=== PATIENT | female | born 1980 | race Caucasian/White ===

== ENCOUNTER 2016-12-21 16:52 | Inpatient (IN) ==
[2016-12-21 18:35] LABS: URINE CULTURE NEEDED? NO; URINE SOURCE CATH
[2016-12-21 18:39] LABS: BILIRUBIN URINE SMALL (NEGATIVE); BLOOD URINE NEGATIVE (NEGATIVE); COLOR YELLOW; GLUCOSE URINE NEGATIVE (NEGATIVE); LEUKOCYTES URINE NEGATIVE (NEGATIVE); NITRITE URINE NEGATIVE (NEGATIVE); PH URINE 5.5; PROTEIN URINE 50 mg/dL (NEGATIVE); SP GRAVITY URINE 1.029; TURBIDITY URINE HAZY (CLEAR); UR EPITHELIAL CELLS <10 /HPF (<10); URINE BACTERIA NEGATIVE /HPF; URINE MICRO REVIEW NEEDED? YES; URINE RBC <10 /HPF (<10); URINE WBC <10 /HPF (<10); UROBILINOGEN URINE 3 mg/dL (NORMAL)
--- NOTE | 2016-12-21 18:42 | PROVIDER DOCUMENTATION ---
HPI-Syncope/Dizziness - General Chief Complaint: Syncope Stated Complaint: syncope/hypotension Time Seen by Provider: 12/21/16 17:56 Source: patient, family Allergies/Adverse Reactions: Patient Allergies Allergy/AdvReac Type Severity Reaction Status Date / Time iodine Allergy RASH Verified 12/21/16 17:53 Home Medications: Home Medication List Medication Instructions Recorded Confirmed Last Taken Type Diazepam 10 mg PO TID 12/21/16 12/21/16 12/21/16 08:00 History Diclofenac Sodium 50 mg PO TID 12/21/16 12/21/16 12/21/16 08:00 History Gabapentin 600 mg PO TID 12/21/16 12/21/16 12/21/16 08:00 History Hydrocodone/Acetaminophen [[place] 1 tab PO PRN PRN 12/21/16 12/21/16 Unknown History 10-325 Tablet] Meloxicam 15 mg PO DAILY 12/21/16 12/21/16 12/21/16 08:00 History Metformin [Glucophage] 500 mg PO DAILY 12/21/16 12/21/16 12/21/16 08:00 History Mometasone/Formoterol [Dulera 200 1 dose PO PRN PRN 12/21/16 12/21/16 Unknown History Mcg/5 Mcg Inhaler] Morphine 15 mg PO PRN PRN 12/21/16 12/21/16 Unknown History Quetiapine Fumarate [Seroquel] 100 mg PO DAILY 12/21/16 12/21/16 12/21/16 08:00 History Quetiapine Fumarate [Seroquel] 200 mg PO DAILY 12/21/16 12/21/16 12/21/16 12:00 History Quetiapine Fumarate [Seroquel] 800 mg PO HS 12/21/16 12/21/16 12/20/16 20:00 History Spironolactone 50 mg PO DAILY 12/21/16 12/21/16 12/21/16 08:00 History Tizanidine [Zanaflex] 4 mg PO TID PRN PRN 12/21/16 12/21/16 Unknown History Trazodone [Desyrel] 50 mg PO HS 12/21/16 12/21/16 Unknown History - History of Present Illness-Syncope/Dizzy Nature of Presenting Problem: 36 y/o WF presents to the ED with c/o syncope x 1 hour 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 Pt states that she remembers walking outside to feed the dog, and came back in- the next memory is her son shaking her to wake her up off of the floor. States disoriented for short amount of time. Denies any drug, etOH use. States chronic pain due to neuropathy in bilat LE. Also states intermittent abd. cramping with constipation x 5 days. Pt was in HH for 3 days and d/c on Tuesday due to diabetes and constipation. States has no hx of HOTN; has been on medications for HTN x 4 months. Denies any vision changes, vomiting, BEGUM, neck pain. Father states that pt has a long hx of chronic drug and etOH use, but has been in their care for one week; had unknown Rx filled today. Pt is seen at a chronic pain clinic for unknown cause. Recently Seen Here or By Another Healthcare Provider: No Review of Systems - Adult - REVIEW OF SYSTEMS - ADULT Constitutional: reports: no symptoms reported. denies: chills, fever Eyes: reports: no symptoms reported. denies: blurred vision, double vision Ears, Nose, Mouth & Throat: reports: no symptoms reported. denies: ear pain, nose pain Cardiovascular: reports: no symptoms reported. denies: chest pain, palpitations Respiratory: reports: no symptoms reported. denies: cough, shortness of breath Gastrointestinal: reports: see HPI, abdominal pain, constipation. denies: nausea, vomiting Genitourinary: reports: no symptoms reported. denies: dysuria, frequency Musculoskeletal: reports: see HPI, muscle weakness, other. denies: joint pain, joint swelling Integumentary: reports: no symptoms reported. denies: nail changes, rash Neurological: reports: see HPI, syncope. denies: headache/migraines, numbness, paresthesia Psychiatric: reports: emotional problems. denies: suicidal thoughts Endocrine: reports: no symptoms reported. denies: cold intolerance, heat intolerance Hematologic/Lymphatic: reports: no symptoms reported. denies: easy bruising, prolonged bleeding Allergic/Immunologic: reports: no symptoms reported All Other Systems: Reviewed and Negative Past History - Adult - PAST MEDICAL HISTORY-ADULT Review of Records: reports: Nursing Assessment Review, Medications Reviewed - SOCIAL HISTORY Smoking: cigarettes, less than 1 pack/day Provider spent 3-5 mins advising pt. on dangers of tobacco.: Discussed manners to quit use, and f/u contacts for add'l counseling. Alcohol Use Frequency: sober (former use) Living Situation: family Physical Exam-General - PHYSICAL EXAM-ADULT Initial Vital Signs Reviewed: Yes - CONSTITUTIONAL General Appearance: alert, mild distress - EYES Eyes: PERRL/EOMI, pink conjunctivae - HEAD, EARS, NOSE, MOUTH & THROAT HENMT: normocephalic/atraumatic, moist mucous membranes - NECK Neck: supple, normal inspection. negative: C-spine tenderness - RESPIRATORY Respiratory: no respiratory distress, crackles, wheezing. negative: accessory muscle use, rales, rhonchi, stridor - CARDIOVASCULAR Cardiovascular: regular rate, rhythm. negative: bradycardia, tachycardia - GASTROINTESTINAL (ABDOMEN) Abdominal Exam: normal bowel sounds, soft, tenderness (mild-generalized). negative: distended, guarding, rigid, rebound, McBurney's point tenderness, Robbins's sign - MUSCULOSKELETAL Back Exam: no CVA tenderness Extremity: normal gait, normal inspection, normal capillary refill, tenderness ( bilat LE pain from superior knees to feet). 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 negative: aphasia, EOM palsy, facial droop, motor weakness, sensory deficit - PSYCHIATRIC Psych/Mental Status: normal mood/affect, normal thought content, normal thought process Progress - PLAN OF CARE/RESULTS Progress/Plan/Lab Results: Bedside Urine ED: Urine Bedside Start: 12/21/16 17:58 Freq: ORDERED Status: Complete Activity Type Activity Date Activity User E-Sign Co-Sign Detail Recorded Client Recorded Date Recorded By Document 12/21/16 18:24 [id number] 12/21/16 18:25 [id number] Edit Status 12/21/16 23:49 [id number] Active=>Complete [id number] 12/21/16 23:49 [id number] 12/21/16 18:24 Point of Care [Bedside Point of Care] -Lot # [id number] - Results Negative -Control Line Visible? Yes 12/21/16 22:14 - Final Blood Blood Culture - Final Coag Negative Staphylococcus Orders Category Date Time Status Admit - [facility] Routine [id number] 12/21/16 23:49 Ordered Cardiac Monitoring DIRECTED Care 12/21/16 17:57 Completed ED: Urine Bedside ORDERED Care 12/21/16 17:58 Completed Finger Stick Blood Sugar (ED) DIRECTED Care 12/21/16 17:57 Completed Oxygen Therapy- ED Nursing DIRECTED Care 12/21/16 17:57 Completed Saline Loc NOW Care 12/21/16 17:57 Completed Diabetic Diet Diet 12/21/16 22:22 Active ABDOMEN FLAT/UPRIGHT [RAD] Stat Exams 12/21/16 18:35 Completed CHEST-2 VIEWS [RAD] Stat Exams 12/21/16 18:35 Completed HEAD/C-SPINE W/O CONTRAST [CT] Stat Exams 12/21/16 18:36 Completed ALCOHOL BLOOD Stat Lab 12/21/16 18:43 Completed BLOOD CULTURE [BLDCUL] Stat Lab 12/21/16 22:14 Results CBC WITH ELECTRONIC DIFF [HEME] Stat Lab 12/21/16 18:43 Completed CK PROFILE [SP CHEM] Stat Lab 12/21/16 18:43 Completed COMPREHENSIVE METABOLIC PANEL [CHEM] Stat Lab 12/21/16 18:43 Completed GRAM STAIN [BLDCUL] Stat Lab 12/21/16 22:14 Completed LACTATE, PLASMA [CHEM] Stat Lab 12/21/16 22:21 Completed PROTIME WITH INR [COAG] Stat Lab 12/21/16 18:43 Completed PTT [COAG] Stat Lab 12/21/16 18:43 Completed URINALYSIS W/POSS RFLX CULT-1 [URINALYSIS] Stat Lab 12/21/16 18:23 Completed URINE DRUG SCREEN Stat Lab 12/21/16 18:23 Completed URINE MANUAL MICROSCOPIC [URINALYSIS] Stat Lab 12/21/16 18:23 Completed 0.9% Sodium Chloride Inj [Ns] 1,000 ml Med 12/21/16 18:45 Discontinued IV 999 mls/hr Azithromycin [Zithromax] Med 12/21/16 19:51 Discontinued 500 mg PO NOW ONE CefTRIAXONE 1 GM/NS [Rocephin 1 gm/Ns] Med 12/21/16 19:51 Discontinued 1 gm in 50 ml IV NOW Hydrocodone/APAP 10 mg/325 mg [[place]-10] Med 12/21/16 22:08 Discontinued 1 each PO Q6H PRN PRN Ketorolac [Toradol] Med 12/21/16 18:45 Discontinued 30 mg IV NOW ONE Methylnaltrexone [Relistor] Med 12/21/16 19:59 Discontinued 8 mg SUBQ NOW ONE Morphine Med 12/21/16 19:59 Discontinued 1 mg IV NOW ONE Piperacil/Tazobact 3.375 gm/Ns [Zosyn 3.375 gm/Ns] Med 12/21/16 22:30 Active 3.375 gm in 50 ml IV Q6H Oxygen Device Routine Oth 12/21/16 23:49 Completed Pulse Oximetry Stat Oth 12/21/16 17:57 Completed EKG [EKG] Stat Ther 12/21/16 17:57 Draft Transfer/Admit Order [TRANSFER] Routine Transfer 12/21/16 22:19 Completed Discussed pt with Dr. Love; he agreed with admission. Discussed admission with pt. Result Diagrams: 12/23/16 10:05 12/23/16 10:05 - XRAY 1 XRAY Study: Chest Impression: See EMR Report (bilateral infiltrates. Follow up films recommended. -per Dr. Galeas) 2 XRAY Study: Abdomen Impression: See EMR Report (mild constipation, mild hepatomegaly -per Dr. Galeas) - CT/MRI 1 CT Study: Cervical Spine, Head Impression: See EMR Report (no hemorrhage, no injury, no fracture -per Dr. Galeas ) - CONSULTS/PCP/HOSPITALIST Notification #1 *Consult/PCP/Hospitalist*: Dr. Alfaro Time Discussed: 20:45 Reason/Comments: bilat PNA, leukocytosis Consult Disposition: Admit Departure - Departure Date of Disposition Decision: 12/21/16 Time of Disposition Decision: 20:37 DIAGNOSIS: History of polydrug abuse Pneumonia Qualifiers: Pneumonia type: due to unspecified organism Laterality: bilateral Lung location : lower lobe of lung Qualified Code(s): J18.9 - Pneumonia, unspecified organism Leukocytosis Qualifiers: Leukocytosis type: unspecified Qualified Code(s): D72.829 - Elevated white blood cell count, unspecified Disposition: ADMITTED INPATIENT 09 Certified Medical Emergency: Emergent Condition: Stable - Critical Care Note This patient required my direct & personal management of CC.: No Attestation - Physician/ GUANACO Attestation Patient care was provided by Advanced Practice Provider:: Yes Advanced Practice Provider:: Janine Castro Advanced Practice Provider documentation review:: The Mid-level provider documentation, treatment plan and medical decision making was reviewed by the physician who agrees with all treatment and medical decision making by the MLP.
[2016-12-21 18:45] LABS: URINE CASTS GRANULAR PRESENT; URINE CRYSTALS NONE SEEN
[2016-12-21] MEDS ORDERED: NS 1,000 ML IV ONE ×2 (18:45→23:49)
[2016-12-21] MEDS ORDERED: TORADOL IV ONE (18:45)
[2016-12-21 18:53] LABS: BASO% 0.9 % (0.0-0.8); EOS# 0.28 X1000 (0.0-0.7); EOS% 1.6 % (0.0-10.0); HEMATOCRIT 33.2 % (37.0-47.0); HEMOGLOBIN 11.3 g/dL (12.0-16.0); IMM GRAN# 0.07 X1000 (0.0-0.04); IMM GRAN% 0.4 % (0.0-0.5); LYMPH# 2.71 X1000 (1.2-3.4); LYMPH% 15.1 % (20.5-51.1); MANUAL DIFF NEEDED? NO; MCH 33.6 PG (27-31); MCV 98.8 FL (81-99); MONO# 0.51 X1000 (0.11-0.59); MONO% 2.8 % (1.7-9.3); MPV 10.8 FL (7.4-10.4); NEUT% 79.2 % (42.2-75.2); PLT 423 X1000 (130-400); RBC 3.36 XMIL (4.2-5.4)
[2016-12-21 18:59] LABS: UR AMPHETAMINES QUAL NONE DETECTED (NONE DETECT); UR BARBITUATES QUAL NONE DETECTED (NONE DETECT); UR BENZODIAZEPIN QUAL PRESUMPTIVE POSITIVE (NONE DETECT); UR CANNABINOIDS QUAL NONE DETECTED (NONE DETECT); UR COCAINE QUAL NONE DETECTED (NONE DETECT); UR METHADONE QUAL NONE DETECTED (NONE DETECT); UR OPIATES QUAL PRESUMPTIVE POSITIVE (NONE DETECT); UR OXYCODONE QUAL NONE DETECTED (NONE DETECT); UR PCP QUAL NONE DETECTED (NONE DETECT)
[2016-12-21 19:01] LABS: INR 1.29; PROTIME 13.8 Seconds (9.2-11.7)
--- NOTE | 2016-12-21 19:06 | Diag Imaging Result Doc PS360 ---
EXAM: CHEST-2 VIEWS HISTORY: wheezing, crackles bilat TECHNIQUE: COMPARISON: None. FINDINGS: The lungs are well expanded. The heart is not enlarged. There are bilateral infiltrates. No pleural effusions. IMPRESSION: Bilateral infiltrates. Follow-up films recommended. Electronically signed by Peter Galeas 12/21/2016 7:04 PM
--- NOTE | 2016-12-21 19:07 | Diag Imaging Result Doc PS360 ---
EXAM: ABDOMEN FLAT/UPRIGHT HISTORY: abd. Pain, hx of constipation/pain med use TECHNIQUE: Three views COMPARISON: None. FINDINGS: No free air beneath the diaphragm. There is stool throughout the colon. The bowel loops are not dilated. The liver is prominent. Mild scoliosis. There are several pelvic calcifications believed to be phleboliths. IMPRESSION: 1.Mild constipation 2.Mild hepatomegaly Electronically signed by Peter Galeas 12/21/2016 7:05 PM
[2016-12-21 19:20] LABS: ALBUMIN 2.3 g/dL (3.5-5.0); CALCIUM 8.3 mg/dL (8.8-10.2); POTASSIUM 3.7 mmol/L (3.5-5.1); TOTAL BILIRUBIN 0.64 mg/dL (0.20-1.00)
--- NOTE | 2016-12-21 19:23 | Diag Imaging Result Doc PS360 ---
EXAM : HEAD/C-SPINE W/O CONTRAST HISTORY: syncope with LOC TECHNIQUE: COMPARISON: None. FINDINGS: Head: No parenchymal hemorrhage. No epidural or subdural hematoma. No subarachnoid hemorrhage. No mass identified on this noncontrasted exam. No hydrocephalus. No sinus opacification. Cervical spine: Mild scoliosis. No precervical soft tissue swelling. No subluxation. No fracture. IMPRESSION: Head: No hemorrhage. No injury. Cervical spine: No fracture. Electronically signed by Peter Galeas 12/21/2016 7:21 PM
[2016-12-21] MEDS ORDERED: ZITHROMAX PO ONE (19:51)
[2016-12-21] MEDS ORDERED: ROCEPHIN 1 GM/NS 1 GM/50 ML IVPB IV ONE (19:51)
[2016-12-21] MEDS ORDERED: MORPHINE IV ONE (19:59)
[2016-12-21] MEDS ORDERED: RELISTOR SUBQ ONE (19:59)
[2016-12-21] MEDS: NORCO-10 PO PRN (22:49)
[2016-12-21] MEDS: ZOSYN 3.375 GM/NS 3.375 GM/50 ML IVPB IV SCH (22:49)
[2016-12-21] MEDS ORDERED: TYLENOL PO PRN (23:49)
[2016-12-21] MEDS ORDERED: DULCOLAX PR ONE (23:54)
[2016-12-22] MEDS: DESYREL PO SCH ×2 (02:13→20:57)
[2016-12-22] MEDS: NEURONTIN PO SCH ×3 (02:13→20:57)
[2016-12-22] MEDS: LOVENOX SUBQ SCH ×2 (02:14→22:55)
[2016-12-22] MEDS: SEROQUEL PO SCH ×2 (03:12→20:57)
[2016-12-22] MEDS: NICODERM PATCH TD PRN (03:43)
[2016-12-22] MEDS: DUONEB (A & A) INH SCH ×7 (03:43→22:59)
[2016-12-22] MEDS: ZOSYN 3.375 GM/NS 3.375 GM/50 ML IVPB IV SCH ×4 (03:46→22:06)
--- NOTE | 2016-12-22 05:04 | HISTORY AND PHYSICAL ---
TIME: 2199 CHIEF COMPLAINT: Weakness, dyspnea on exertion, and a syncopal episode. HISTORY OF PRESENT ILLNESS: Ms. Martin is a 36-year-old, female who presented to the ER tonight by EMS with complaints of a syncopal episode just prior to arrival. The patient was just recently discharged from [facility] on December 17. The patient states she was admitted for approximately 3 days. She reports that she got admitted for neuropathy, though during this admission was diagnosed with diabetes. She states that approximately 2 days after being discharged, she began not feeling well and feeling more weak. This has progressively gotten worse. Also, she reports that at rest, she does not have any shortness of breath, though states that she only walks just a couple of feet and becomes very dyspneic and dizzy. She also reports a productive cough with clear sputum. She denies any fever, body aches , or chills. The patient does report that she has chronic pain and takes pain medication for this. Secondary to this, she also has continued problems with constipation and reports that she has not had a bowel movement in approximately 1 week. She states that is not uncommon for her to go awhile without having a bowel movement. She reports that she has gone as long as up to a month before. She does report, as previously mentioned, some dizziness and lightheadedness, though denies any headache or visual disturbances. She does report that when she had her syncopal episode earlier that she did pass out onto the floor, though it is unknown whether or not she hit her head. The patient does not have any signs of trauma noted, and is alert and oriented to person, place, time, and situation at this time, and is answering all questions appropriately. She denies any other injuries. Denies any chest pain, nausea, vomiting, diarrhea, dysuria, or urinary frequency. The patient does report chronic pain related to her neuropathy. Upon evaluation in the ER, the patient was found to be slightly hypotensive with the lowest blood pressure reading of 92/59. She was also found to be dyspneic and slightly hypoxic. Lung sounds had wheezing and rhonchi noted with decreased lung sounds in bilateral bases. Leukocytosis was present as well. Chest x-ray showed that she had bilateral infiltrates. Abdominal x-ray showed that she had some constipation. The patient was given a dose of Relistor in the ER, though at this time has not had a bowel movement. The patient also is a chronic pain patient. She currently takes quite a few pain medicines. She currently sees Dr. Tom Calvo for pain management control as well as Dr. Ger Thomas, who is her psychiatrist in [place]. The patient denies any other drug use except for her prescribed pain medicines. She also denies any alcohol abuse as well, though currently still does smoke a pack and a half of cigarettes per day. At this time, we will admit the patient for further treatment and evaluation of her bilateral pneumonia, hypotension, and constipation. REVIEW OF SYSTEMS: A 12 point review of systems was conducted with the patient. All were negative except for pertinent positives mentioned above in the HPI. PAST MEDICAL HISTORY: 1. Asthma. 2. Diabetes mellitus. 3. Hypertension. 4. Seizures. 5. Bipolar disorder. 6. Neuropathy. PAST SURGICAL HISTORY: No known past surgical history. SOCIAL HISTORY: The patient denies any alcohol or illicit drug use, though she has been a long time chronic pain patient. She does currently smoke a pack and a half of cigarettes a day, and has so since the age of 13. FAMILY HISTORY: She reports that her mother had a history of HHT (that is hereditary hemorrhagic telangiectasia). She reports that her dad he is healthy and she has no siblings. ALLERGIES: She reports allergies to iodine, stating it caused her to have a rash. HOME MEDICATIONS: 1. Diazepam 10 mg p.o. t.i.d. 2. Diclofenac 50 mg p.o. t.i.d. 3. Gabapentin 600 mg p.o. t.i.d. 4. [place] 10 mg 1 tablet p.o. t.i.d. for pain. 5. Meloxicam 15 mg p.o. daily. 6. Metformin 500 mg p.o. daily. 7. Dulera 200 mcg/5 mcg inhaler 1 puff inhaled daily. 8. Morphine 15 mg extended release b.i.d. 9. Seroquel 1300 mg p.o. at bedtime, though when the patient was questioned about this dosage, she reports that at this time she has only been taking 400 mg daily at night and this has been controlling her symptoms well. 10. Spironolactone 50 mg p.o. daily. 11. Zanaflex 4 mg p.o. t.i.d. p.r.n. 12. Trazodone 50 mg p.o. at bedtime. DIAGNOSTIC DATA/LABORATORY RESULTS: White blood cell count is 17.93, red blood cell count 3.36, hemoglobin 11.3, hematocrit 33.2, platelet count is 423,000. PT 13.8, INR 1.29 , PTT 35. Sodium 137, potassium 3.7, chloride 97, bicarb 26, BUN 9, creatinine 1.2, with a GFR of 51, glucose 143, calcium 8.3. Total bilirubin 0.64, AST 75, ALT 23, alkaline phosphatase is 111. CK 75. Plasma lactate 2.2. Urinalysis was obtained via catheter. It was positive for protein , trace ketones, small bilirubin. It was negative for leukocytes white blood cells, or bacteria. Urine drug screen was positive for opiates and benzodiazepines. Serum alcohol was 0. EKG showed normal sinus rhythm at a rate of 95 with a QTc of 434. Chest 2 view showed bilateral infiltrates. This was per radiology. Abdomen flat and upright showed mild constipation and mild hepatomegaly. This was per radiology. CT of head, C-spine without contrast showed no hemorrhage, no injury, and no cervical spine fractures. This was per radiology as well. PHYSICAL EXAMINATION: VITAL SIGNS: Temperature 97.6 degrees, heart rate 92, respirations 23, blood pressure 111/64. Oxygen saturation is 94% on nasal cannula at 2 L. GENERAL: Mr. Martin is a 36-year-old, female who was resting on the ER stretcher. She was in no acute distress. She was awake, alert, and able to answer questions appropriately. HEENT: Head is atraumatic, normocephalic. Pupils are equal, round, reactive to light, were 3 mm bilaterally and brisk. Subconjunctivae were pink. Oral mucosa is moist. Oropharynx is clear. NECK: Supple. Trachea midline. CARDIOVASCULAR: Patient has normal S1, S2. No murmurs, gallops, or rubs appreciated, with a regular rate and rhythm. PULMONARY: Patient has symmetrical chest expansion bilaterally. Lung sounds in the upper lung ramos had wheezing and rhonchi noted. Patient's lung sounds in bilateral lower ramos were diminished. ABDOMEN: Soft. Nondistended, though the patient does have a slightly protuberant abdomen noted. She complained of some generalized tenderness upon palpation. Bowel sounds were present in all 4 quadrants, were slightly hypoactive. EXTREMITIES: No cyanosis, clubbing, or edema noted. Pulse, motor, and sensory were intact in all extremities. Pedal pulses were 3+ bilaterally. INTEGUMENTARY: The patient's skin is pink, warm, dry, and intact. No lesions or sores noted. NEUROLOGICAL: Patient is alert and oriented x4. Cranial nerves 2-12 are grossly intact. ASSESSMENT AND PLAN: 1. Hospital-acquired pneumonia with bilateral infiltrates. We have placed her on Zosyn and Levaquin for intravenous antibiotic coverage. The patient did have a recent hospital admission as well as does take quite a bit of pain medication and has had a syncopal episode so we will also cover her for aspiration pneumonia. Blood cultures and sputum culture have been ordered. We will continue with aggressive pulmonary toilet, scheduled DuoNeb treatments, oxygen therapy, and we will continue to follow. 2. Leukocytosis. This is likely related to her pneumonia. We will continue with treatment as mentioned per #1 and continue to follow. 3. Hypotension. The patient has received normal saline bolus in the emergency room. Her blood pressure at this time has improved. We will also place an order for a cortisol level given that the patient is a chronic pain patient and this could be related to adrenal insufficiency and/ or possibly pain medication. We will continue to monitor her blood pressure closely. 4. Acute kidney injury. This could be secondary to some mild fluid volume depletion, hypotension, and/or medication-related. We will continue with fluid resuscitation with normal saline at 100 mL per hour. We will adjust her current medication dosages for appropriate renal dosing and avoid any nephrotoxic medications. 5. Diabetes mellitus type 2. Given that the patient's creatinine is slightly elevated, we will hold her metformin and place her on a sliding scale lispro insulin, and continue to follow. 6. Neuropathy. We will continue with the patient's gabapentin, though we have adjusted the dosage. 7. Chronic pain. Given that the patient has been hypotensive we have held and/ or adjusted some of her medications. She will receive [place] 10mg PO Q6H PRN for pain at this time. 8. Bipolar disorder. We will continue with the patient's Seroquel and trazodone. 9. Constipation. The patient is to have a Dulcolax suppository as well as Colace 100 mg twice a day and MiraLAX 17 g by mouth daily. 10. Nicotine dependence. We will continue to certified alcohol counselor the patient on the need for smoking cessation during her admission and upon discharge, though while inpatient, the patient will receive a nicotine patch. 11. The patient will be placed on the medical floor with telemetry. She will have vital signs every 6 hours. We will do strict intake and output. We will do incentive spirometry. She will be on a diabetic diet. We will repeat a CBC and CMP in the morning. For deep venous thrombosis prophylaxis, she will be placed on Lovenox 30 mg subcutaneous every 24 hours. Further orders and recommendations pending hospital course, diagnostic studies, and physician evaluation. Dictated by MALA Antonio for Piper Alfaro MD Seen ,examined and discussed case with NUTRITION THERAPIST cc: Piper Alfaro MD MTDD
[2016-12-22 05:24] LABS: BASO% 1.2 % (0.0-0.8); EOS# 0.39 X1000 (0.0-0.7); EOS% 3.2 % (0.0-10.0); HEMATOCRIT 34.2 % (37.0-47.0); HEMOGLOBIN 11.2 g/dL (12.0-16.0); IMM GRAN# 0.08 X1000 (0.0-0.04); IMM GRAN% 0.7 % (0.0-0.5); LYMPH# 2.57 X1000 (1.2-3.4); MANUAL DIFF NEEDED? YES; MCH 33.3 PG (27-31); MCHC 32.7 g/dL (33-37); MCV 101.8 FL (81-99); MONO# 0.42 X1000 (0.11-0.59); MONO% 3.4 % (1.7-9.3); MPV 10.8 FL (7.4-10.4); NEUT% 70.5 % (42.2-75.2); PLT 466 X1000 (130-400); RBC 3.36 XMIL (4.2-5.4)
[2016-12-22] MEDS: NORCO-10 PO PRN ×3 (05:26→22:58)
--- NOTE | 2016-12-22 05:33 | EKG Report ---
Test Performed on : 12/21/2016 5:45:30 PM Test Reason : AMS Blood Pressure : / mmHG Vent. Rate : 095 BPM Atrial Rate : 095 BPM P-R Int : 138 ms QRS Dur : 076 ms QT Int : 346 ms P-R-T Axes : 040 023 028 degrees QTc Int : 434 ms Normal sinus rhythm. Cannot rule out Anterior infarct , age undetermined Abnormal ECG No previous ECGs available Unconfirmed Result
[2016-12-22 05:35] LABS: ALBUMIN 2.2 g/dL (3.5-5.0); CALCIUM 7.8 mg/dL (8.8-10.2); POTASSIUM 4.1 mmol/L (3.5-5.1); TOTAL BILIRUBIN 0.79 mg/dL (0.20-1.00); TOTAL PROTEIN 4.9 g/dL (6.3-8.3)
[2016-12-22] MEDS: HUMALOG SUBQ SCH ×4 (06:27→20:52)
[2016-12-22 07:26] LABS: EOS 2 % (1-10); LYMPHS 22 % (21-51)
[2016-12-22] MEDS: MIRALAX PO SCH (09:33)
[2016-12-22] MEDS: COLACE PO SCH ×2 (09:33→20:56)
[2016-12-22] MEDS: VALIUM PO SCH ×3 (09:34→23:03)
[2016-12-22] MEDS: MS CONTIN PO SCH ×2 (12:08→20:57)
[2016-12-22] MEDS ORDERED: VANCOMYCIN IV PER PHARMACY MISC SCH (12:15)
--- NOTE | 2016-12-22 12:38 | PROGRESS NOTE ---
DATE: 12/22/2016 SUBJECTIVE: Patient reports she is still feeling short of breath. Denies any fever or chills. She reports hurting all over because her usual pain medications are not being given to her here in the hospital. OBJECTIVE: Vital Signs: Temperature is 98.7 degrees, heart rate 112, respiratory rate 22, blood pressure 159/102, O2 saturation 94% on 3 L nasal cannula. General Examination: This is a morbidly obese, looking older than her age, 36-year-old, female lying in bed, in no acute distress. HEENT: Head is normocephalic and atraumatic. Anicteric sclerae and pale conjunctivae. Mucous membranes dry. Neck: Supple. No JVD noted. No carotid bruits. No lymphadenopathy. No thyromegaly. Cardiovascular Examination: S1 and S2 heard. No murmurs, gallops, or rubs. Regular rate and rhythm. Respiratory Examination: Wheezing in both pulmonary ramos. Patient is not using any accessory muscles or having work of breathing. Abdomen: Soft and protuberant abdomen but nondistended. Nontender to palpation. Bowel sounds present. No organomegaly. Extremities: No clubbing, cyanosis, or edema. Peripheral pulses present in both legs. Neurological Examination: Patient is alert and oriented x3. Moves 4 extremities. Laboratory Data: White cell count 12.26, hemoglobin 11.2, hematocrit 34.2, platelets 466,000. BMP shows creatinine 1.2 and glucose 126. ASSESSMENT AND PLAN: 1. Healthcare-associated pneumonia. Patient is currently on Zosyn and Levaquin but because I have been called with blood cultures that are positive for gram-positive cocci, I decided to change the Levaquin for vancomycin. Clinically, she is showing mild improvement clinically. We will continue with the same management. The patient is getting DuoNeb and oxygen therapy. White cell count is also getting better. 2. Hypotension. That condition is resolved. Patient is on intravenous fluids. Because of chronic pain medication use, cortisol level has been ordered for suspected adrenal insufficiency. The result is normal. 3. Acute kidney injury. The patient is on intravenous fluids but the creatinine is around the same. We will continue with the same management. 4. Diabetes mellitus type 2. The patient is on sliding scale insulin. 5. Diabetic neuropathy. We will continue with gabapentin. 6. Chronic pain. Patient insists on continuing her home medications. Currently, she is on [place] 10 every 6 hours as needed and also morphine 15 mg by mouth twice a day. We are going to start less medication. We will see how she does. 7. Bipolar disorder. Patient is on Seroquel and trazodone. Patient is being followed by the local psychiatrist. 8. Constipation, of course because she is on those pain medications. We will continue with MiraLAX. 9. Nicotine dependence. We will continue with the nicotine patch. cc: Farshad Dexter MD
[2016-12-22] MEDS ORDERED: VANCOMYCIN IV ONE (14:00)
[2016-12-22] MEDS ORDERED: NS IV ONE (14:00)
[2016-12-22] MEDS ORDERED: ZANAFLEX PO PRN (15:46)
--- NOTE | 2016-12-22 16:20 | Diag Imaging Result Doc PS360 ---
EXAM: CHEST-1 VIEW HISTORY: decrease o2 sat TECHNIQUE: Single AP view of chest sitting COMPARISON: 12/21/2016 FINDINGS: Visualization is limited by portable technique and large body habitus. Bilateral infiltrates are suspected and unchanged when compared with yesterday's study. No effusions are appreciated. Heart size is within normal limits. IMPRESSION: Probable unchanged bilateral infiltrates. Electronically signed by Belén Chou 12/22/2016 4:18 PM
[2016-12-22 16:24] LABS: BE -2.1 mmoll (-3.0-3.0); BLOOD TYPE ARTERIAL; METHB 0.6 % (0.0-1.5); O2(CT) 15.1 mL/dL (15.0-23.0); PCO2(98.6) 47 mmHg (35-45); PO2(98.6) 76 mmHg (60-100); SAMPLE BLOOD; SAO2 96.5 % (95.0-100.0); THB 11.4 g/dL (11.5-17.4); pH(98.6) 7.32 (7.35-7.45)
[2016-12-22 16:25] LABS: ALLEN TEST NO; DRAW SITE R BRACHIAL; MODALITY PRB
[2016-12-22 17:53] LABS: URINE CULTURE NEEDED? NO; URINE SOURCE CATH
[2016-12-22 17:59] LABS: BILIRUBIN URINE NEGATIVE (NEGATIVE); BLOOD URINE MODERATE (NEGATIVE); COLOR YELLOW; GLUCOSE URINE NEGATIVE (NEGATIVE); LEUKOCYTES URINE NEGATIVE (NEGATIVE); NITRITE URINE NEGATIVE (NEGATIVE); PH URINE 5.5; PROTEIN URINE 30 mg/dL (NEGATIVE); SP GRAVITY URINE 1.031; TURBIDITY URINE HAZY (CLEAR); UROBILINOGEN URINE NORMAL (NORMAL)
[2016-12-22 18:01] LABS: URINE MICRO REVIEW NEEDED? YES
[2016-12-22 18:05] LABS: UR EPITHELIAL CELLS <10 /HPF (<10); URINE BACTERIA NEGATIVE /HPF; URINE RBC TNTC /HPF (<10); URINE WBC <10 /HPF (<10)
[2016-12-22] MEDS ORDERED: DESYREL PO SCH (21:00)
[2016-12-23] MEDS ORDERED: LEVAQUIN 750 MG in NS 150 ML IV SCH (01:00)
[2016-12-23] MEDS: DUONEB (A & A) INH SCH ×6 (03:45→23:02)
[2016-12-23] MEDS: ZOSYN 3.375 GM/NS 3.375 GM/50 ML IVPB IV SCH ×5 (04:06→22:58)
[2016-12-23] MEDS: HUMALOG SUBQ SCH ×4 (06:00→20:50)
[2016-12-23] MEDS: NORCO-10 PO PRN (06:16)
[2016-12-23] MEDS: COLACE PO SCH ×2 (08:32→22:57)
[2016-12-23] MEDS: MS CONTIN PO SCH ×2 (08:32→20:45)
[2016-12-23] MEDS: NEURONTIN PO SCH ×2 (08:32→22:58)
[2016-12-23] MEDS: VALIUM PO SCH (08:32)
[2016-12-23] MEDS: MIRALAX PO SCH (08:34)
[2016-12-23] MEDS ORDERED: LEVAQUIN PO SCH (09:30)
[2016-12-23 10:29] LABS: BASO% 1.1 % (0.0-0.8); EOS# 0.44 X1000 (0.0-0.7); HEMATOCRIT 35.8 % (37.0-47.0); HEMOGLOBIN 11.5 g/dL (12.0-16.0); IMM GRAN% 0.9 % (0.0-0.5); LYMPH# 1.63 X1000 (1.2-3.4); MANUAL DIFF NEEDED? YES; MCH 33.1 PG (27-31); MCHC 32.1 g/dL (33-37); MCV 103.2 FL (81-99); MONO% 2.8 % (1.7-9.3); MPV 10.6 FL (7.4-10.4); NEUT% 76.2 % (42.2-75.2); RBC 3.47 XMIL (4.2-5.4)
[2016-12-23 10:36] LABS: AGAP 11; BUN 6 mg/dL (8-22); CALCIUM 7.3 mg/dL (8.8-10.2); CHLORIDE 102 mmol/L (98-107); COSMO 276; POTASSIUM 4.1 mmol/L (3.5-5.1); SODIUM 138 mmol/L (136-145); TCO2 25 mmol/L (25-35)
[2016-12-23 10:39] LABS: BANDS 1 % (0-1); EOS 2 % (1-10); LYMPHS 9 % (21-51); MONO 2 % (1-9)
[2016-12-23 10:41] LABS: PLT 417 X1000 (130-400)
--- NOTE | 2016-12-23 10:45 | PROGRESS NOTE ---
DATE: 12/23/2016 SUBJECTIVE: The patient reports she is still feeling short of breath. As per nursing staff yesterday and also per patient, she reports that she was using her pain pills from home and those were confiscated and locked out. But now, she looks to me to be more sleepy and using on non- rebreather mask. VITAL SIGNS: Temperature 97.6 degrees, heart rate 101, respiratory 20, blood pressure 101/51, O2 saturation 100% on 15 L. PHYSICAL EXAMINATION: General Examination: This is a morbidly obese, looking older than her age, 36-year-old female lying in bed, in no acute distress. HEENT: Head is normocephalic, atraumatic. Anicteric sclerae and pale conjunctivae. Mucous membranes dry. Neck supple. No JVD noted. No carotid bruits. No lymphadenopathy. No thyromegaly. Cardiovascular: S1-S2 heard. No murmurs, gallops, or rubs. Regular rate and rhythm. Respiratory: Clear bilaterally to auscultation. No work of breathing or using accessory muscles. Abdomen is soft, nontender to palpation. Bowel sounds present. No organomegaly. Extremities: No clubbing, cyanosis, or edema. Peripheral pulses present in both legs. Neurological: Patient is alert and oriented x3, able to move 4 extremities. Cranial nerves 2-12 grossly normal. Wheezing is still present in both pulmonary ramos but patient is not using any accessory muscles or work of breathing and using now a non-rebreather mask. Abdomen is soft, protuberant but nondistended. Nontender to palpation. Bowel sounds present. No organomegaly. No signs of peritoneal irritation. Extremities: No clubbing, cyanosis, or edema. Peripheral pulses present in both legs. Neurologic exam: Patient is more sleepy today but moves her extremities and, of course, responds to verbal stimuli. LABORATORY DATA: There are no labs from today. ASSESSMENT AND PLAN: 1. Healthcare-associated pneumonia. Patient currently is on Zosyn and vancomycin. The last antibiotic was started yesterday because of report from gram-positive cocci. Today, the final report said Staphylococcus epidermidis which is a contaminant, so Levaquin has been restarted and we will continue with Zosyn. Clinically, she looks more sleepy and having some shortness of breath. I think this is because of the medication that she was abusing here last night, namely [place] and morphine 15 extended release form. The patient has been advised to not take any medications outside and the only medication that she is supposed to take is what is being given here in the hospital. Patient acknowledged understanding. 2. Hypotension, resolved. Patient was on IV fluids and, by now, without any fluid, blood pressure is better. 3. Acute kidney injury. We are going to check a BMP tomorrow. From yesterday, the creatinine was 1.2. 4. Diabetes mellitus, type 2. Patient on sliding scale insulin. 5. Diabetic neuropathy. We will continue with gabapentin. 6. Chronic pain. I already advised the patient that we cannot continue with the same doses of pain medication that she was taking before coming to the hospital because that will worsen respiratory failure. So, at this point, we are going to stop [place] 10 that was being given every 6 hours as needed. We will continue with morphine 15 b.i.d., and we will also stop Zanaflex. We will see how she does tomorrow. 7. Bipolar disorder. Patient is on Seroquel and trazodone, home doses. 8. Constipation. Will continue with MiraLAX. 9. Nicotine dependence. Will continue with nicotine patch. cc: Farshad Dexter MD
--- NOTE | 2016-12-23 10:45 | Diag Imaging Result Doc PS360 ---
EXAM: CT THORAX W/O CONTRAST INDICATION: pna TECHNIQUE: Dose reduction protocol was used. COMPARISON: None. FINDINGS: There is diffuse groundglass opacity throughout both lungs with interlobular septal thickening in a crazy paving pattern. This pattern is nonspecific and can be seen in multiple processes such as adult respiratory distress syndrome, cryptogenic organizing pneumonia, edema, pulmonary hemorrhage, and alveolar proteinosis, etc. There are no pleural fluid collections and there is no pneumothorax. There is mild mediastinal lymphadenopathy, probably reactive. For reference, there is a lymph node in the aorticopulmonary window on image 36 of series 2 measuring up to 1.6 x 1.0 cm axially. Limited views of the upper abdomen reveals extensive diffuse hepatic steatosis. IMPRESSION: 1.Severe diffuse airspace infiltrates and interstitial thickening bilaterally. Please see above discussion. 2.Mild mediastinal lymphadenopathy. 3.Diffuse hepatic steatosis noted incidentally. Electronically signed by Eliecer Solorio 12/23/2016 10:43 AM
[2016-12-23] MEDS ORDERED: VANCOMYCIN 1.65 GM in NS 250 ML IV SCH (14:00)
[2016-12-23] MEDS: NICODERM PATCH TD PRN (15:11)
[2016-12-23] MEDS: ZOFRAN IV PRN (16:48)
[2016-12-23] MEDS: SEROQUEL PO SCH (22:57)
[2016-12-23] MEDS: DESYREL PO SCH (22:58)
[2016-12-23] MEDS: LOVENOX SUBQ SCH (22:58)
[2016-12-24] MEDS: ZANAFLEX PO SCH ×2 (01:38→20:26)
[2016-12-24] MEDS: VALIUM PO SCH ×3 (01:39→20:26)
[2016-12-24 02:25] LABS: ALLEN TEST YES; BE 3.9 mmoll (-3.0-3.0); BLOOD TYPE ARTERIAL; DRAW SITE R RADIAL; METHB 1.2 % (0.0-1.5); O2(CT) 13.5 mL/dL (15.0-23.0); PCO2(98.6) 46 mmHg (35-45); PO2(98.6) 55 mmHg (60-100); SAMPLE BLOOD; SAO2 90.7 % (95.0-100.0); THB 10.9 g/dL (11.5-17.4); pH(98.6) 7.41 (7.35-7.45)
[2016-12-24 02:26] LABS: MODALITY PRB
[2016-12-24] MEDS: DUONEB (A & A) INH SCH ×6 (03:18→23:06)
[2016-12-24] MEDS: ZOSYN 3.375 GM/NS 3.375 GM/50 ML IVPB IV SCH ×4 (03:59→22:32)
[2016-12-24] MEDS ORDERED: MORPHINE IV PRN (05:55)
[2016-12-24 06:02] LABS: BASO% 0.7 % (0.0-0.8); EOS# 0.23 X1000 (0.0-0.7); EOS% 1.4 % (0.0-10.0); HEMATOCRIT 35.8 % (37.0-47.0); HEMOGLOBIN 11.4 g/dL (12.0-16.0); IMM GRAN# 0.16 X1000 (0.0-0.04); LYMPH# 2.22 X1000 (1.2-3.4); LYMPH% 13.2 % (20.5-51.1); MANUAL DIFF NEEDED? YES; MCH 32.9 PG (27-31); MCHC 31.8 g/dL (33-37); MCV 103.5 FL (81-99); MONO# 0.62 X1000 (0.11-0.59); MONO% 3.7 % (1.7-9.3); MPV 10.3 FL (7.4-10.4); PLT 477 X1000 (130-400); RBC 3.46 XMIL (4.2-5.4)
[2016-12-24 06:10] LABS: AGAP 10; BUN 3 mg/dL (8-22); CALCIUM 7.4 mg/dL (8.8-10.2); CHLORIDE 104 mmol/L (98-107); COSMO 281; POTASSIUM 4.5 mmol/L (3.5-5.1); SODIUM 142 mmol/L (136-145); TCO2 28 mmol/L (25-35)
[2016-12-24] MEDS: MORPHINE IV PRN ×5 (06:18→22:30)
[2016-12-24] MEDS: HUMALOG SUBQ SCH ×4 (06:20→20:24)
[2016-12-24 07:08] LABS: BANDS 4 % (0-1); LYMPHS 10 % (21-51); MONO 2 % (1-9)
--- NOTE | 2016-12-24 07:11 | EKG Report ---
Test Performed on : 12/24/2016 05:55:17 AM Test Reason : No Order in [employer] Blood Pressure : / mmHG Vent. Rate : 131 BPM Atrial Rate : 131 BPM P-R Int : 120 ms QRS Dur : 066 ms QT Int : 316 ms P-R-T Axes : 047 041 020 degrees QTc Int : 466 ms Sinus tachycardia. Nonspecific ST and T wave abnormality Abnormal ECG When compared with ECG of 21-DEC-2016 17:45, ST now depressed in Anterior leads Nonspecific T wave abnormality now evident in Anterior leads Confirmed by Jonathan CASTANEDA, Jaspreet Quintana ([id number]) on 12/24/2016 1:03:00 PM
[2016-12-24] MEDS: NEURONTIN PO SCH ×2 (08:32→20:25)
[2016-12-24] MEDS: COLACE PO SCH ×2 (08:32→20:24)
[2016-12-24] MEDS: MIRALAX PO SCH (08:33)
[2016-12-24] MEDS ORDERED: LEVAQUIN 750 MG/D5W 750 MG/150 ML IVPB IV SCH (09:00)
[2016-12-24] MEDS: SODIUM CHLORIDE 0.9% INJ SCH ×2 (09:18→20:25)
[2016-12-24] MEDS: SOLU-MEDROL IV SCH ×2 (09:18→20:24)
[2016-12-24] MEDS: PROTONIX IV SCH ×2 (09:18→20:25)
[2016-12-24] MEDS ORDERED: VANCOMYCIN IV PER PHARMACY MISC SCH (13:00)
--- NOTE | 2016-12-24 13:42 | PROGRESS NOTE ---
DATE: 12/24/2016 SUBJECTIVE: Patient reports she is still feeling short of breath and, of course , every single day hurting all over. As per nursing staff, today, they already found in her purse tablets of Valium. We are not sure how many tablets that she had or if she took some of them. OBJECTIVE: Vital Signs: Temperature 98.8 degrees, heart rate 115, respiratory rate 22, blood pressure 115/66. O2 saturation 97% on non-rebreather mask at 15 L/minute. General: This is a 36- year-old, obese female, lying in bed in no acute distress. HEENT: Head is normocephalic and atraumatic. Anicteric sclerae and pale conjunctivae. Mucous membranes dry. Neck supple. No JVD noted. No carotid bruits. No lymphadenopathy. No thyromegaly. Cardiovascular: S1, S2 heard. No murmurs, gallops, or rubs. Regular rate and rhythm. Respiratory: Clear bilaterally to auscultation. No work of breathing or using accessory muscles. I hear crackles in both bases. Abdomen is soft, nontender to palpation. Bowel sounds present. No organomegaly. Extremities: No clubbing, cyanosis, or edema. Peripheral pulses present in both legs. Neurologic: Patient alert and oriented x3. Moves 4 extremities. Patient is still sleepy today but better than yesterday. LABORATORY DATA: White cell count is 16.77, hemoglobin 11.4, hematocrit 35.8, platelets 477,000. ABG shows pH 7.41 with pCO2 of 46, PO2 of 55 and normal BMP. ASSESSMENT AND PLAN: 1. Healthcare-associated pneumonia. Patient is on Zosyn and Levaquin. White cell count is getting a little bit worse, so we preferred to switch Levaquin to vancomycin. 2. Acute respiratory failure. Patient is on oxygen supplementation. Continues to raise it up. The reason is because this patient who was on really high doses of pain medications, namely MS Contin 15 mg p.o. b.i.d. plus [place] 10, 6-7 times per day were usually prescribed for awhile. On top of that, last night she was found to have Valium and some of her usual pain medications that she admits that she was taking here because what she was getting here in the hospital was not controlling her pain. Today, again, we found Valium pills in her purse, and I guess that is the reason why this acute hypercapnic hypoxic respiratory failure is getting worse. We went to talk to this patient. Unfortunately, she does not understand how sick she is and she keeps asking for more pain medication even though she was warned that if we restarted her home medication, there is a high risk of worsening respiratory failure and end up needing intubation but, apparently, that is not a problem for her. In any case, we prefer to stay away of any more pain medications or benzodiazepines and continue just with morphine 1 mg IV q.4 hours for prevention of opiate withdrawal, and the dose of Valium has been decreased to 2.5 mg p.o. b.i.d. That is going to be restarted tomorrow if her respiratory function is better. 3. Acute kidney injury. Renal function is completely fine. 4. Chronic pain. As we mentioned before, patient is really concerned about continued taking her home medications and not really concerned about her pneumonia. She has been advised twice about the need for discontinuing those medications while she recovers from the pneumonia and then those medications can eventually be restarted. Patient acknowledged understanding but, unfortunately, after we have talked with her, she keeps asking for more pain medications. 5. Bipolar disorder. Patient is on Seroquel and trazodone home doses. 6. Constipation. Of course, because of this opiate use, we will continue with MiraLAX. 7. Nicotine Dependence. We will continue with nicotine patch. cc: Farshad Dexter MD MTDMaria G
[2016-12-24] MEDS: ZOFRAN IV PRN ×2 (15:13→18:45)
[2016-12-24] MEDS: VANCOMYCIN 1,500 MG in NS 250 ML IV SCH (15:13)
--- NOTE | 2016-12-24 18:01 | CONSULTATION ---
DATE OF CONSULTATION: 12/24/2016 CONCLUSION: Patient is admitted with bilateral opacities, which I agree are due to pneumonia and mediastinal adenopathy, which is also secondary to pneumonia. The patient has 1 of 2 blood cultures growing a coagulase-negative Staph. I think this is a contaminant. RECOMMENDATIONS: I agree with treating the patient with vancomycin and Zosyn. To this, I have added Levaquin. There is no indication for treating the blood culture results because it is a contaminant and not a pathogen. DISCUSSION: The patient is wearing a BiPAP mask. She was unable to provide a history. The history was taken from a review of the chart. The patient came in with a complaint of weakness, dyspnea on exertion and syncopal episode. LABS: She has a CBC with a white count of 16,770. Hemoglobin 11.4, and platelet count 477,000. One out of 2 blood cultures, and the patient is growing a coagulase-negative Staph. This is a contaminant and does not require treatment with antibiotics. PAST MEDICAL HISTORY: Positive for asthma, diabetes mellitus, hypertension, seizures, bipolar disorder and neuropathy. PAST SURGICAL HISTORY: None. SOCIAL HISTORY: The patient has chronic pain and takes pain medication. She is being treated by a physician for that. She does not drink alcoholic beverages or use drugs. The patient does smoke cigarettes. FAMILY HISTORY: Positive for hereditary hemorrhagic telangiectasia. ALLERGIES: Patient is allergic to iodine. HOME MEDICATIONS: Include diazepam, diclofenac, gabapentin, [place], meloxicam, metformin, Dulera, morphine, Seroquel, spironolactone, Zanaflex and trazodone. PHYSICAL EXAMINATION: Vital Signs: Temperature is 99, pulse 118, respirations 20, blood pressure 120/60. Patient's weight is listed as 212 pounds. General: This is an obese, young female. She seems very agitated. HEENT: She is wearing a BiPAP mask. I can barely make out her speech. She appears to be able to hear my spoken words. There is no drainage from the nose or ears. Neck: No meningismus. Thorax: Patient has an increased AP diameter of the chest. Lungs: There were bibasilar rales. Cardiovascular: Heart rate was regular and rapid. Patient has edema of both legs. Abdomen: Soft and nontender. Neurologic: Patient is awake. She can move her extremities. There is no tremor. Her sensation is intact to touch. I was unable to test her memory. Integument: No rash noted. Thank you for the consult. cc: Giuseppe Delarosa MD
[2016-12-24] MEDS: DULERA 200 MCG/5 MCG INHALER INH SCH (19:35)
[2016-12-24] MEDS: DESYREL PO SCH (20:24)
[2016-12-24] MEDS: LEVAQUIN 750 MG in NS 150 ML IV SCH (20:25)
[2016-12-24] MEDS: SEROQUEL PO SCH (20:25)
[2016-12-24] MEDS: LOVENOX SUBQ SCH (22:36)
[2016-12-25] MEDS: ZOFRAN IV PRN ×4 (00:21→20:54)
[2016-12-25] MEDS: DULERA 200 MCG/5 MCG INHALER INH SCH ×5 (00:24→22:00)
[2016-12-25] MEDS: VANCOMYCIN 1,500 MG in NS 250 ML IV SCH ×2 (01:56→13:52)
[2016-12-25] MEDS: MORPHINE IV PRN ×5 (02:55→20:54)
[2016-12-25] MEDS: DUONEB (A & A) INH SCH ×6 (03:21→23:20)
[2016-12-25] MEDS: ZOSYN 3.375 GM/NS 3.375 GM/50 ML IVPB IV SCH ×4 (03:56→21:00)
[2016-12-25 05:54] LABS: BASO% 0.3 % (0.0-0.8); EOS# 0.06 X1000 (0.0-0.7); EOS% 0.3 % (0.0-10.0); HEMOGLOBIN 10.7 g/dL (12.0-16.0); IMM GRAN# 0.25 X1000 (0.0-0.04); IMM GRAN% 1.4 % (0.0-0.5); LYMPH# 1.57 X1000 (1.2-3.4); LYMPH% 8.8 % (20.5-51.1); MANUAL DIFF NEEDED? YES; MCH 33.2 PG (27-31); MCHC 32.4 g/dL (33-37); MCV 102.5 FL (81-99); MONO% 4.5 % (1.7-9.3); MPV 10.5 FL (7.4-10.4); NEUT% 84.7 % (42.2-75.2); PLT 481 X1000 (130-400); RBC 3.22 XMIL (4.2-5.4)
[2016-12-25 06:09] LABS: AGAP 13; BUN 5 mg/dL (8-22); CHLORIDE 103 mmol/L (98-107); COSMO 284; POTASSIUM 4.7 mmol/L (3.5-5.1); SODIUM 141 mmol/L (136-145); TCO2 25 mmol/L (25-35)
[2016-12-25] MEDS: HUMALOG SUBQ SCH ×4 (06:20→20:45)
[2016-12-25] MEDS ORDERED: CALCIUM GLUCONATE 1 GM in NS 50 ML IV ONE (06:27)
[2016-12-25 06:48] LABS: LYMPHS 8 % (21-51); MONO 2 % (1-9)
[2016-12-25 06:49] LABS: HYPOCHROM 1+
[2016-12-25] MEDS ORDERED: PNEUMOVAX 23 IM ONE (06:52)
[2016-12-25] MEDS: NEURONTIN PO SCH ×2 (08:29→20:45)
[2016-12-25] MEDS: COLACE PO SCH ×2 (08:29→20:45)
[2016-12-25] MEDS: MIRALAX PO SCH (08:29)
[2016-12-25] MEDS: VALIUM PO SCH ×2 (08:29→20:47)
[2016-12-25] MEDS: SOLU-MEDROL IV SCH ×2 (08:29→20:44)
[2016-12-25] MEDS: NICODERM PATCH TD PRN (09:38)
[2016-12-25] MEDS: SODIUM CHLORIDE 0.9% INJ SCH ×3 (09:43→20:45)
[2016-12-25] MEDS: NEXIUM IV SCH ×2 (09:43→20:44)
--- NOTE | 2016-12-25 11:31 | PROGRESS NOTE ---
DATE: 12/25/2016 SUBJECTIVE: Patient reports feeling a little bit better, although she is still short of breath. No fever reported. No cough. OBJECTIVE: Vital Signs: Temperature 98 degrees, heart rate 121 respiratory rate 24, blood pressure 119/64, and O2 saturation 99% on non-rebreather mask. General: This is a 36-year-old obese female, lying in bed in no acute distress. HEENT: Head is normocephalic and atraumatic. Anicteric sclerae and pale conjunctivae. Mucous membranes dry. Neck: Supple. No JVD noted. No carotid bruits. No lymphadenopathy. No thyromegaly. Cardiovascular: S1 and S2 heard. No murmurs, gallops, or rubs. Regular rate and rhythm. Respiratory: Clear bilaterally to auscultation. No work of breathing or using accessory muscles. Some mild crackles in both bases. Abdomen: Soft and nontender to palpation. Bowel sounds present. No organomegaly. Extremities: No clubbing, cyanosis, or edema. Peripheral pulses present in both legs. Neurologic: Patient is alert and oriented x3. Moves 4 extremities. Patient definitely is more awake and alert than yesterday. LABORATORY DATA: White cell count 17.82, hemoglobin 10.7, hematocrit 33.0, and platelets 481,000. BMP unremarkable except calcium of 7.0. ASSESSMENT AND PLAN: 1. Healthcare-associated pneumonia. Patient is on Zosyn and Levaquin. We have consulted Dr. Delarosa from Infectious disease yesterday because she was not doing good yesterday. Dr. Delarosa has added Levaquin to her current treatment, so now is on vancomycin, Levaquin, and Zosyn. White cell count is still elevated, I guess because of the steroids that we are using, in this case Solu-Medrol 40 mg IV q.12 hours. We will continue with the same management. 2. Acute respiratory failure. The patient is still requiring oxygen supplementation via non- rebreather mask. While I was examining this patient, we tried to put her on 6L of oxygen by nasal cannula, but the O2 saturation dropped to 85 and below, so she is still requiring high amounts of oxygen. The patient understands that we cannot provide her usual pain medication and benzodiazepines that she usually takes and, since we have stopped them yesterday, clinically she is doing better. We will continue with the same management. 3. Acute kidney injury, resolved. 4. Chronic pain. At this point, we are going to continue holding almost all pain medications until this patient is recovering. 5. Bipolar disorder. Patient on Seroquel and trazodone. 6. Constipation. We will continue with MiraLAX. 7. Nicotine dependence. We will continue with nicotine patch. cc: Farshad Dexter MD
[2016-12-25] MEDS: LEVAQUIN 750 MG in NS 150 ML IV SCH (18:03)
[2016-12-25] MEDS: ZANAFLEX PO SCH (20:46)
[2016-12-25] MEDS: DESYREL PO SCH (20:46)
[2016-12-25] MEDS: SEROQUEL PO SCH (20:53)
[2016-12-26] MEDS: LOVENOX SUBQ SCH (01:45)
[2016-12-26] MEDS: MORPHINE IV PRN ×5 (01:45→21:12)
[2016-12-26] MEDS: ZOFRAN IV PRN ×5 (01:45→21:18)
[2016-12-26] MEDS: VANCOMYCIN 1,500 MG in NS 250 ML IV SCH (01:46)
[2016-12-26] MEDS: DUONEB (A & A) INH SCH ×6 (03:35→23:34)
[2016-12-26] MEDS: ZOSYN 3.375 GM/NS 3.375 GM/50 ML IVPB IV SCH ×4 (03:36→21:53)
[2016-12-26 05:05] LABS: MANUAL DIFF NEEDED? NO
[2016-12-26 05:12] LABS: BASO% 0.2 % (0.0-0.8); EOS# 0.06 X1000 (0.0-0.7); EOS% 0.4 % (0.0-10.0); HEMATOCRIT 32.9 % (37.0-47.0); HEMOGLOBIN 10.7 g/dL (12.0-16.0); IMM GRAN# 0.31 X1000 (0.0-0.04); IMM GRAN% 2.1 % (0.0-0.5); LYMPH# 1.21 X1000 (1.2-3.4); LYMPH% 8.1 % (20.5-51.1); MCH 33.5 PG (27-31); MCHC 32.5 g/dL (33-37); MCV 103.1 FL (81-99); MONO# 0.84 X1000 (0.11-0.59); MONO% 5.6 % (1.7-9.3); MPV 10.3 FL (7.4-10.4); NEUT% 83.6 % (42.2-75.2); PLT 510 X1000 (130-400); RBC 3.19 XMIL (4.2-5.4)
[2016-12-26 05:44] LABS: AGAP 13; BUN 7 mg/dL (8-22); CALCIUM 7.6 mg/dL (8.8-10.2); CHLORIDE 103 mmol/L (98-107); COSMO 282; POTASSIUM 4.7 mmol/L (3.5-5.1); SODIUM 139 mmol/L (136-145); TCO2 23 mmol/L (25-35)
[2016-12-26] MEDS: HUMALOG SUBQ SCH ×4 (06:09→20:18)
[2016-12-26] MEDS: DULERA 200 MCG/5 MCG INHALER INH SCH ×2 (07:24→19:34)
[2016-12-26] MEDS: NEXIUM IV SCH ×2 (08:29→20:18)
[2016-12-26] MEDS: SODIUM CHLORIDE 0.9% INJ SCH (08:29)
[2016-12-26] MEDS: SOLU-MEDROL IV SCH ×2 (08:30→20:19)
[2016-12-26] MEDS: VALIUM PO SCH ×2 (08:30→20:19)
[2016-12-26] MEDS: COLACE PO SCH ×2 (08:30→20:19)
[2016-12-26] MEDS: MIRALAX PO SCH (08:30)
[2016-12-26] MEDS: NEURONTIN PO SCH ×2 (08:30→20:18)
[2016-12-26] MEDS ORDERED: LASIX IV ONE (08:40)
--- NOTE | 2016-12-26 10:07 | PROGRESS NOTE ---
DATE: 12/26/2016 SUBJECTIVE: Patient reports breathing much better. Last night, she was confused and tried to pull out the IV lines. Now, she is feeling better. OBJECTIVE: Vital Signs: Temperature 99.6 degrees, heart rate 105, respiratory rate 18, blood pressure 129/83, O2 saturation 94% on nonrebreather mask. General Examination: This is a 36-year- old, obese, female lying in bed, in no acute distress. HEENT: Head is normocephalic and atraumatic. Anicteric sclerae and pale conjunctivae. Mucous membranes moist. Neck: Supple. No JVD noted. No carotid bruits. No lymphadenopathy. No thyromegaly. Cardiovascular Examination: S1 and S2 heard. No murmurs, gallops, or rubs. Regular rate and rhythm. Respiratory Examination: There are some fine crackles in both bases and wheezing. The patient is not using any accessory muscles or having work of breathing. Abdomen: Soft, nontender to palpation. Bowel sounds present. No organomegaly. Extremities: No clubbing, cyanosis, or edema. Peripheral pulses present in both legs. Neurological Examination: Patient is alert and oriented x3. Able to move 4 extremities. Cranial nerves 2-12 grossly normal. Laboratory Data: White cell count 15.03, hemoglobin 10.7, hematocrit 32.9, platelets 510,000. BMP unremarkable. ASSESSMENT AND PLAN: 1. Healthcare-associated pneumonia. Patient currently is on Levaquin, Zosyn, and vancomycin. Dr. Delarosa from infectious disease is following this patient. Help appreciated. Clinically, this patient is feeling better. The patient is also receiving Solu-Medrol 40 mg IV q.12 hours. We will continue with the same management. 2. Acute respiratory failure. The patient is still requiring high amounts of oxygen. Today, while we were evaluating this patient, we tried nasal cannula 5-6 L. She was maintaining O2 saturations above 91%. We are going to continue with the same management. 3. Acute kidney injury, resolved. 4. Chronic pain. Patient, because she has been on pain medications for a really long period of time, she keeps asking when we can increase the doses of her medications. I think because of that, she is requiring oxygen by nasal cannula only. What we can try is to increase the doses from 1 mg to 2 mg IV q.4 hours and see how this patient does. 5. Acute kidney injury, resolved. 6. Bipolar disorder. Patient is on Seroquel and trazodone. 7. Constipation. Patient will continue with MiraLAX. 8. Nicotine dependence. Will continue with nicotine patch. cc: Farshad Dexter MD
[2016-12-26] MEDS: LEVAQUIN 750 MG in NS 150 ML IV SCH (20:17)
[2016-12-26] MEDS: SEROQUEL PO SCH (20:19)
[2016-12-26] MEDS: ZANAFLEX PO SCH (20:19)
[2016-12-26] MEDS: NICODERM PATCH TD PRN (21:18)
[2016-12-26] MEDS: DESYREL PO SCH (21:55)
[2016-12-27] MEDS: DUONEB (A & A) INH SCH ×5 (04:00→19:27)
[2016-12-27] MEDS: ZOFRAN IV PRN ×4 (04:04→20:47)
[2016-12-27] MEDS: MORPHINE IV PRN ×5 (04:04→20:47)
[2016-12-27] MEDS: ZOSYN 3.375 GM/NS 3.375 GM/50 ML IVPB IV SCH ×5 (04:04→22:44)
[2016-12-27] MEDS: LOVENOX SUBQ SCH (04:04)
[2016-12-27 04:59] LABS: BASO% 2.4 % (0.0-0.8); EOS# 0.07 X1000 (0.0-0.7); EOS% 0.6 % (0.0-10.0); HEMATOCRIT 37.7 % (37.0-47.0); HEMOGLOBIN 11.8 g/dL (12.0-16.0); IMM GRAN# 0.37 X1000 (0.0-0.04); IMM GRAN% 3.3 % (0.0-0.5); LYMPH# 1.37 X1000 (1.2-3.4); MANUAL DIFF NEEDED? NO; MCH 33.4 PG (27-31); MCHC 31.3 g/dL (33-37); MCV 106.8 FL (81-99); MONO# 0.87 X1000 (0.11-0.59); MONO% 7.7 % (1.7-9.3); MPV 10.3 FL (7.4-10.4); PLT 476 X1000 (130-400); RBC 3.53 XMIL (4.2-5.4)
[2016-12-27 05:24] LABS: POTASSIUM 4.6 mmol/L (3.5-5.1)
[2016-12-27] MEDS: HUMALOG SUBQ SCH ×4 (06:18→20:30)
--- NOTE | 2016-12-27 06:52 | PROGRESS NOTE ---
DATE: 12/27/2016 PRESENT ILLNESS: The patient is being treated for a bilateral pneumonia. The patient complains of paresthesias in her feet. She has had this problem, she tells me, for 3 years. MEDICATIONS: The patient is on a combination of vancomycin, Zosyn, and Levaquin. She has been on antibiotics now for 3 days. CONCLUSION: The patient also has 1 of 2 blood cultures positive for coagulase-negative staphylococcus. I think this is a contaminant and does not need antimicrobial therapy. PHYSICAL EXAMINATION: Vital Signs: Temperature is 98.1 degrees, pulse 97, respirations 16, blood pressure 134/88. General: This is a somewhat ill-appearing, young female. She looks a whole lot better than she did 3-4 days ago when she was on a BiPAP mask. Lungs: There were bibasilar rales. Cardiovascular: Heart rate was regular. Abdomen: Soft and nontender. Neurologic: Patient is alert. She can move her extremities. There is no tremor. She is complaining of paresthesias in her feet. LAB AND X-RAY: There is no new x-ray today. The patient's CBC shows a white count of 11,370, hemoglobin 11.8, and platelet count 476,000. Creatinine is 1.1. GFR is 56. Vancomycin level is 11.6. ASSESSMENT AND PLAN: Patient has a bilateral pneumonia. My plans are to change Levaquin from intravenous to oral. Also, I have ordered a chest x-ray for today. Pending on the results of the chest x-ray, the patient may be able to go home soon. COMORBIDITIES: Include asthma, diabetes, seizures. cc: Giuseppe Delarosa MD
[2016-12-27] MEDS: DULERA 200 MCG/5 MCG INHALER INH SCH ×2 (07:39→19:27)
--- NOTE | 2016-12-27 07:55 | Diag Imaging Result Doc PS360 ---
EXAM: CHEST-2 VIEWS HISTORY: pneumonia TECHNIQUE: Two views of the chest COMMENT: There are coarse alveolar opacities throughout both lungs which are worse than on 12/22/2016, particularly considering the fact that the lungs are better expanded on today's study. IMPRESSION: Diffuse pneumonia plus minus pulmonary edema. Electronically signed by Khang Mahmood 12/27/2016 7:53 AM
[2016-12-27] MEDS ORDERED: LASIX IV ONE (08:27)
[2016-12-27] MEDS: VANCOMYCIN 1,500 MG in NS 250 ML IV SCH (08:51)
[2016-12-27] MEDS: MIRALAX PO SCH (08:51)
[2016-12-27] MEDS: VALIUM PO SCH ×2 (08:52→20:32)
[2016-12-27] MEDS: NEURONTIN PO SCH ×2 (08:52→20:30)
[2016-12-27] MEDS: COLACE PO SCH ×2 (08:52→20:30)
[2016-12-27] MEDS: NEXIUM IV SCH ×2 (08:52→20:31)
[2016-12-27] MEDS: SODIUM CHLORIDE 0.9% INJ SCH ×3 (08:53→20:31)
[2016-12-27] MEDS: NORCO-5 PO SCH ×2 (08:53→20:33)
[2016-12-27] MEDS: SOLU-MEDROL IV SCH ×2 (08:53→20:29)
--- NOTE | 2016-12-27 09:12 | PROGRESS NOTE ---
DATE: 12/27/2016 SUBJECTIVE: Patient reports breathing better. She is still complaining of paresthesias and numbness and tingling in both legs. She reports that she is getting gabapentin 600 mg 2 times per day. Her usual dose is 1200 mg 3 times per day. She denies any fever or chills. OBJECTIVE: Vital Signs: Temperature 98.5 degrees, heart rate 98, respiratory rate 20, blood pressure 117/64, O2 saturation 96% on 3 L nasal cannula. General Examination: This is a 36-year- old female lying in bed, in no acute distress. HEENT: Head is normocephalic, atraumatic. Anicteric sclerae and pale conjunctivae. Mucous membranes moist. Neck: Supple. No JVD noted. No carotid bruits. No lymphadenopathy. No thyromegaly. Cardiovascular: S1, S2 heard. No murmurs, gallops, or rubs. Regular rate and rhythm. Respiratory: Find crackles in both bases. Mild wheezing but definitely better in comparing with previous day. Patient is not using any accessory muscles or having work of breathing. Abdomen: Soft, nontender to palpation. Bowel sounds present. No organomegaly. Extremities: No clubbing, cyanosis, or edema. Peripheral pulses present in both legs. Neurological: Patient is alert and oriented x3. Able to move 4 extremities. Cranial nerves 2-12 grossly normal. LABORATORY DATA: White cell count 11.37, hemoglobin 11.8, hematocrit 37.7, platelets 476,000. The BMP is okay with creatinine 1.1 and calcium 8.0. ASSESSMENT AND PLAN: 1. Healthcare associated pneumonia. This patient was on Levaquin, IV Zosyn and vancomycin. Dr. Delarosa from Infectious disease is following this patient. He also had an x- ray today that shows still persistent pneumonia with superimposed pulmonary edema. At this point, we are going to continue with the same management. The only change from his standpoint is to change Levaquin IV to p.o. We will continue also with Solu-Medrol to 40 mg IV q.12 hours. I think she can be discharged when she is ready with a Medrol pack. The white cell count is also almost back to normal even thought the patient is on IV steroids. 2. Acute respiratory failure. Patient's oxygen is slowly trending down. At admission she was requiring a non-rebreather masking not even tolerating the Ventimask and now she is stable for the last 2 days nasal cannula on 6 L. At this point, we are going to continue with the same management. 3. Acute kidney injury resolved. 4. Chronic pain. Patient is still requesting her usual home medication which is De [place]ia 10, 4-6 tablets daily, MS Contin 15 mg p.o. b.i.d., Valium 10 mg p.o. b.i.d. and Neurontin 1200 mg TID. At this point, we are going to slowly restart some of her home medications. She is on morphine 2 mg IV q.3 hours p.r.n. to pain. We going to restart [place] 5 mg 2 times per day and increase the doses of gabapentin from 600 to 1200 b.i.d. and plan to increase her medication slowly but watching patient's oxygen needs really closely. If she starts requiring more oxygen again we will definitely hold some of her medications. 5. Acute bipolar disorder. Patient is on Seroquel and trazodone. 6. Constipation. Patient on MiraLAX. 7. Nicotine dependence. We will continue with nicotine patch. PLAN: Overall, this patient is slowly improving. At this time, we are going to continue with the same management. I can anticipate that this patient may be discharged in the next 2-3 days. Antibiotics as per Dr. Delarosa and she probably needs oxygen at home while she recovers from pneumonia. We will see how this patient does. cc: Farshad Dexter MD [facility]
[2016-12-27] MEDS: LEVAQUIN PO SCH (18:31)
[2016-12-27] MEDS: DESYREL PO SCH (20:30)
[2016-12-27] MEDS: SEROQUEL PO SCH (20:31)
[2016-12-27] MEDS: ZANAFLEX PO SCH (20:33)
[2016-12-27] MEDS: NICODERM PATCH TD SCH (22:57)
[2016-12-28] MEDS: MORPHINE IV PRN ×8 (00:59→23:41)
[2016-12-28] MEDS: ZOFRAN IV PRN ×7 (01:00→20:37)
[2016-12-28] MEDS: LOVENOX SUBQ SCH (01:00)
[2016-12-28] MEDS: DUONEB (A & A) INH SCH ×7 (01:40→23:12)
[2016-12-28] MEDS: DULERA 200 MCG/5 MCG INHALER INH SCH ×4 (01:40→19:18)
[2016-12-28] MEDS: ZOSYN 3.375 GM/NS 3.375 GM/50 ML IVPB IV SCH (05:00)
[2016-12-28 05:13] LABS: BASO% 0.6 % (0.0-0.8); EOS# 0.05 X1000 (0.0-0.7); EOS% 0.4 % (0.0-10.0); HEMATOCRIT 34.6 % (37.0-47.0); IMM GRAN# 0.47 X1000 (0.0-0.04); IMM GRAN% 4.2 % (0.0-0.5); LYMPH# 1.57 X1000 (1.2-3.4); LYMPH% 14.1 % (20.5-51.1); MANUAL DIFF NEEDED? YES; MCH 32.5 PG (27-31); MCHC 31.8 g/dL (33-37); MCV 102.4 FL (81-99); MONO% 8.1 % (1.7-9.3); MPV 10.1 FL (7.4-10.4); NEUT% 72.6 % (42.2-75.2); PLT 560 X1000 (130-400); RBC 3.38 XMIL (4.2-5.4)
[2016-12-28 05:22] LABS: CALCIUM 8.2 mg/dL (8.8-10.2); POTASSIUM 4.5 mmol/L (3.5-5.1)
[2016-12-28] MEDS: HUMALOG SUBQ SCH ×4 (06:08→20:37)
[2016-12-28 07:13] LABS: BANDS 6 % (0-1); LYMPHS 16 % (21-51)
[2016-12-28] MEDS: MIRALAX PO SCH (08:10)
[2016-12-28] MEDS: NICODERM PATCH TD SCH (08:10)
[2016-12-28] MEDS: VALIUM PO SCH ×2 (08:11→20:35)
[2016-12-28] MEDS: NORCO-5 PO SCH ×2 (08:11→20:36)
[2016-12-28] MEDS: LEVAQUIN PO SCH (08:11)
[2016-12-28] MEDS: NEURONTIN PO SCH ×2 (08:11→20:37)
[2016-12-28] MEDS: NEXIUM IV SCH ×2 (08:12→20:36)
[2016-12-28] MEDS: SODIUM CHLORIDE 0.9% INJ SCH ×3 (08:12→20:36)
[2016-12-28] MEDS: COLACE PO SCH ×2 (08:13→20:34)
[2016-12-28] MEDS: SOLU-MEDROL IV SCH ×2 (08:17→20:34)
[2016-12-28 08:37] LABS: INR 1.31
[2016-12-28] MEDS: VANCOMYCIN 1,500 MG in NS 250 ML IV SCH (09:25)
[2016-12-28] MEDS ORDERED: NS 250 ML ONE (09:53)
[2016-12-28] MEDS ORDERED: NS 500 ML ONE (11:00)
--- NOTE | 2016-12-28 11:25 | PROGRESS NOTE ---
DATE: 12/28/2016 PRESENT ILLNESS: The patient is being treated for a bilateral pneumonia. She also has severe neuropathy. MEDICATIONS: The patient is receiving vancomycin, Zosyn, and Levaquin. The 1st 2 antibiotics are being given IV and the last 1 is being given p.o. This is day 4 of treatment. PHYSICAL EXAMINATION: Vital Signs: Temperature is 97.6 degrees, pulse 117, respirations 16, blood pressure 147/96. General: This is a somewhat ill-appearing, young female. She is in no acute distress. Lungs: Clear to auscultation. Cardiovascular: Heart rate is regular. Abdomen: Soft and nontender. Neurologic: Patient is alert. She can move her extremities. LAB AND X-RAY: The CBC shows a white count of 11,120, hemoglobin 11, platelet count 560,000. Creatinine is 1.1. GFR is 56. ASSESSMENT AND PLAN: Patient has bilateral pneumonia. My plan is to continue Levaquin p.o. and have a PICC placed in the patient and try to send her home on vancomycin which she is already receiving and discontinue Zosyn and add IV cefepime. I will treat her for approximately 2 weeks and have her come back to the office, at which time I will examine her and get a chest x-ray. I am also going to check today the patient's immunoglobulin levels to see if she has an immunoglobulin deficiency which predisposed her to develop this severe pneumonia. The patient's comorbidities include asthma, diabetes, seizures, and paresthesias. cc: Giuseppe Delarosa MD
[2016-12-28] MEDS: MAXIPIME 2 GM/NS 2 GM/100 ML IVPB IV SCH ×2 (11:34→22:50)
--- NOTE | 2016-12-28 15:06 | PROGRESS NOTE ---
DATE: 12/28/2016 SUBJECTIVE: Today, Ms. Martin refers to be feeling a lot better. Breathing is significantly improved. OBJECTIVE: General: Ms. Martin is a 36-year-old female. She is in bed, not in any distress. HEENT: Mucosa is pink and moist. Anicteric. Acyanotic. Neck is supple. Chest: Air entry is bilaterally reduced with diffuse fine crackles bilaterally. Cardiovascular: Regular rate and rhythm. Abdomen is soft. Extremities: No pedal edema. AGRICULTURAL APPRAISER: Patient is awake and alert and oriented. There is no focal neurological deficit. LABORATORY DATA: WBC is 11.1, hemoglobin is 11.0, platelet count of 560,000. Chemistry is reviewed. Creatinine is 1.1 which is not new. A chest x-ray done yesterday shows diffuse pneumonia +/- pulmonary edema. ASSESSMENT: 1. Acute hypoxemic respiratory failure secondary to diffuse interstitial disease. 2. Acute respiratory distress syndrome, questionable etiology. We think it is due to diffuse multifocal pneumonia; however, underlying other etiologies need to be sought including vascular disease. I will, therefore, send MACARIO and ANCA and will get pulmonary medicine to see the patient. To be fair, the patient has progressively improved over the course of the hospital stay with the current care, so I would not add anything else until the patient is seen by pulmonary medicine. 3. Bilateral pneumonia. Patient is getting IV antibiotics and is being followed by Dr. Delarosa. 4. Chronic pain. 5. Bipolar disorder. Patient is on Seroquel and trazodone. 6. Nicotine dependence. cc: Tee Del Rosario MD
[2016-12-28] MEDS: ZANAFLEX PO SCH (20:35)
[2016-12-28] MEDS: SEROQUEL PO SCH (20:36)
[2016-12-28] MEDS: DESYREL PO SCH (20:39)
[2016-12-28] MEDS: HUMULIN 70/30 SUBQ SCH (20:40)
[2016-12-29] MEDS: LOVENOX SUBQ SCH (01:34)
[2016-12-29] MEDS: DUONEB (A & A) INH SCH ×6 (04:37→23:00)
[2016-12-29 05:00] LABS: ALLEN TEST YES; BE 5.3 mmoll (-3.0-3.0); BLOOD TYPE ARTERIAL; DRAW SITE R RADIAL; METHB 1.3 % (0.0-1.5); O2(CT) 14.5 mL/dL (15.0-23.0); PCO2(98.6) 50 mmHg (35-45); PO2(98.6) 83 mmHg (60-100); SAMPLE BLOOD; SAO2 97.3 % (95.0-100.0); THB 10.8 g/dL (11.5-17.4)
[2016-12-29 05:01] LABS: MODALITY CANNULA
[2016-12-29 05:10] LABS: BASO% 0.5 % (0.0-0.8); EOS# 0.02 X1000 (0.0-0.7); EOS% 0.2 % (0.0-10.0); HEMATOCRIT 31.7 % (37.0-47.0); HEMOGLOBIN 10.2 g/dL (12.0-16.0); IMM GRAN# 0.44 X1000 (0.0-0.04); IMM GRAN% 4.1 % (0.0-0.5); LYMPH# 1.97 X1000 (1.2-3.4); LYMPH% 18.6 % (20.5-51.1); MANUAL DIFF NEEDED? YES; MCH 32.8 PG (27-31); MCHC 32.2 g/dL (33-37); MCV 101.9 FL (81-99); MONO# 0.96 X1000 (0.11-0.59); MPV 9.9 FL (7.4-10.4); NEUT% 67.6 % (42.2-75.2); PLT 546 X1000 (130-400); RBC 3.11 XMIL (4.2-5.4)
[2016-12-29 05:28] LABS: AGAP 8; BUN 9 mg/dL (8-22); CALCIUM 8.3 mg/dL (8.8-10.2); CHLORIDE 102 mmol/L (98-107); COSMO 286; POTASSIUM 4.1 mmol/L (3.5-5.1); SODIUM 140 mmol/L (136-145); TCO2 30 mmol/L (25-35)
[2016-12-29 05:38] LABS: HEMOGLOBIN A1C 7.4 % (4.8-6.0)
[2016-12-29] MEDS: HUMALOG SUBQ SCH ×4 (06:14→20:30)
[2016-12-29] MEDS: MORPHINE IV PRN ×6 (06:17→23:17)
[2016-12-29] MEDS: ZOFRAN IV PRN ×5 (06:17→20:32)
--- NOTE | 2016-12-29 07:19 | Diag Imaging Result Doc PS360 ---
CHEST-1 VIEW - 12/29/2016 INDICATION: SOB TECHNIQUE: COMPARISON: 12/27/2016 FINDINGS: There is a new left PICC line in good position with the tip at the upper SVC. Lung volumes are lower. There is little change in the diffuse bilateral predominantly alveolar infiltrate. Heart size remains top normal. No pneumothorax or large effusion. IMPRESSION: New PICC line, otherwise no change from prior. Electronically signed by Joseluis Brito 12/29/2016 7:16 AM
[2016-12-29] MEDS: DULERA 200 MCG/5 MCG INHALER INH SCH ×3 (07:24→20:09)
[2016-12-29 08:07] LABS: LYMPHS 28 % (21-51); MONO 6 % (1-9)
--- NOTE | 2016-12-29 08:18 | PROGRESS NOTE ---
DATE: 12/29/2016 SUBJECTIVE: The patient has a bilateral pneumonia. MEDICATIONS: She has been on the combination of vancomycin, Zosyn, and Levaquin for 4 days. PHYSICAL EXAMINATION: Vital Signs: Temperature is 98.4 degrees, pulse 82, respirations 16, blood pressure 164/94. General: This is an obese, but otherwise healthy-appearing, young female, who is in no acute distress. Lungs: Clear to auscultation. Cardiovascular: Regular heart rate. Abdomen: Soft and nontender. Extremities: The patient has a PICC in her left arm. The site is not bleeding or swollen. LAB AND X-RAY: There is no new x-ray today. The patient's immunoglobulin levels, specifically IgG and IgA were normal. CBC shows a white count of 10,610, hemoglobin 10.2, and platelet count 546,000. Patient's creatinine is 0.9. GFR is greater than 60. Blood gases show a pH of 7.4, PO2 of 83, and a pCO2 of 50. ASSESSMENT AND PLAN: Patient has pneumonia. She will be going home today. [facility] will be supplying her antibiotics. I have printed up from the computer a prescription for Levaquin for the patient to fill. She will be on vancomycin and cefepime. Both of them are going to be given intravenously. The patient's comorbidities include asthma, diabetes mellitus, and seizures. cc: Giuseppe Delarosa MD
[2016-12-29] MEDS: VANCOMYCIN 1,500 MG in NS 250 ML IV SCH (08:50)
[2016-12-29] MEDS: MIRALAX PO SCH (08:51)
[2016-12-29] MEDS: NICODERM PATCH TD SCH (08:51)
[2016-12-29] MEDS: NEURONTIN PO SCH (08:51)
[2016-12-29] MEDS: SOLU-MEDROL IV SCH ×2 (08:51→20:27)
[2016-12-29] MEDS: NORCO-5 PO SCH ×2 (08:51→20:28)
[2016-12-29] MEDS: LEVAQUIN PO SCH (08:51)
[2016-12-29] MEDS: SODIUM CHLORIDE 0.9% INJ SCH ×3 (08:52→20:30)
[2016-12-29] MEDS: COLACE PO SCH ×2 (08:52→20:29)
[2016-12-29] MEDS: LASIX IV SCH (08:52)
[2016-12-29] MEDS: VALIUM PO SCH ×2 (08:52→20:29)
[2016-12-29] MEDS: HUMULIN 70/30 SUBQ SCH ×2 (08:52→20:31)
[2016-12-29] MEDS: NEXIUM IV SCH ×2 (08:52→20:30)
[2016-12-29] MEDS: MAXIPIME 2 GM/NS 2 GM/100 ML IVPB IV SCH ×2 (09:46→22:13)
[2016-12-29] MEDS ORDERED: LASIX IV ONE (09:59)
--- NOTE | 2016-12-29 13:51 | CONSULTATION ---
DATE OF CONSULTATION: 12/29/2016 REQUESTING PHYSICIAN: Dr. Del Rosario. REASON FOR CONSULTATION: Diffuse lung injury. HISTORY OF PRESENT ILLNESS: Ms. Martin is a 36-year-old, white female with chronic pain syndrome, bipolar disorder, and a recent diagnosis of diabetes mellitus. She reports she was in [facility] for approximately 3 days when she was admitted with generalized weakness. The patient was home for approximately 4 days when she presented to our emergency room with an episode of syncope and disorientation. According to the emergency room notes, the patient reported the patient has a long history of drug use and alcohol use, although the patient denies alcohol use or drugs except for her prescribed medications. The patient was noted to be significantly hypoxemic on presentation and her arterial blood gas revealed a pH of 7.32, pCO2 of 47, and a PO2 of 76 on a partial rebreather. Her oxygenation worsened during her hospitalization but has started to improve. A CT scan of the thorax was performed on 12/23/2016 which revealed diffuse bilateral ground-glass changes, nonspecific mediastinal adenopathy, and diffuse hepatic steatosis. She was placed on broad-spectrum antibiotics by Dr. Giuseppe Delarosa. Her ANCA screen has been sent and is pending. Her IgG levels are normal and an MACARIO screen was negative. She denies smoking anything except for tobacco. She does report occasional reflux symptoms but denies an oral brash. PAST MEDICAL HISTORY/PROBLEM LIST: 1. Chronic pain syndrome. The patient reports she has had "neuropathy" for the last 3 years. 2. Bipolar disorder. 3. Recent diagnosis of diabetes mellitus. Her hemoglobin A1c was 7 during this hospitalization. 4. Hypertension. 5. Seizure disorder. 6. Possible history of asthma. SOCIAL HISTORY: Alcohol abuse noted per her father as indicated in the ER records. She denies alcohol use. She smokes 1-1/2 packs of cigarettes per day since the age of 13. FAMILY HISTORY: Positive for hereditary hemorrhagic telangiectasia. REVIEW OF SYSTEMS: Notable for cough which is nonproductive, hypoxemia or drop in the saturations when her oxygen is removed, generalized pain for which she is asking for additional pain medications. PHYSICAL EXAMINATION: General: Reveals an obese, white female, resting comfortably and in no distress. Vital Signs: BP 134/88, heart rate 102, respiration rate 18, oxygen saturation 100% on nasal cannula. HEENT: Pupils are equal and reactive. Oropharynx is clear. Neck: Supple. Chest: Reveals good air entry but with bilateral crackles. Cardiac Examination: Increased rate, regular rhythm. Abdomen: Obese and soft. Extremities: Reveal 1+ ankle edema. LABORATORIES: Chest x-ray today reveals little change in her diffuse bilateral pulmonary infiltrates. IMPRESSION: A 36-year-old, white female with bipolar disorder, chronic pain syndrome, gastroesophageal reflux disease, heavy tobacco use who presents with acute hypoxemic and acute hypercapnic respiratory failure 4 days after leaving [facility]. These records are not yet available for review but it is assumed that she did not have this process during that admission. Differential diagnosis is broad but it does not appear to be a typical institution acquired pneumonia. This may represent an acute lung injury related to an aspiration event, a viral pneumonia, or it is possible that upon re-initiation of tobacco use, she has developed desquamative interstitial pneumonitis associated with tobacco use. Clinically, she is not improved. She denies risk factors for human immunodeficiency virus. RECOMMENDATIONS: 1. Continue current oxygenation and wean oxygen as tolerated. 2. Single diuretic dose to see if her chest x-ray will improve and her oxygen requirements will diminish. 3. Send an HIV antibody. If she is HIV positive, this would change the differential. 4. Smoking cessation was strongly recommended. We will continue steroids at current dose in the event that this is DIP. 5. Reflux precautions. 6. Additional recommendations pending hospital course. cc: Tom Upton MD
--- NOTE | 2016-12-29 16:32 | PROGRESS NOTE ---
DATE: 12/29/2016 SUBJECTIVE: Today Ms. Martin was actually crying, very emotional, that she is hurting in her legs and she is not getting her pain medications. The patient was evaluated by Pulmonary Medicine and they prefer the patient to stay a few more days just to see the lungs getting better before she goes home. OBJECTIVE: Vital signs: Blood pressure is 134/88, pulse 102, respirations 18, temperature is 98.2 degrees. General Examination: Ms. Martin is a 36-year-old female. She is in bed, not seemingly distress. HEENT: Mucosa is pink and moist. Chest: Air entry is bilaterally reduced. There is diffuse bilateral coarse crepitations. Cardiovascular: Regular rate and rhythm. Abdomen: Soft. Extremities: No pedal edema. TOOL SPECIALIST: Patient is awake and alert and oriented. LABORATORY DATA: WBC is down to 10.61, hemoglobin is 10.2, platelet count is 546,000. Chemistry is reviewed, unremarkable. Glucose is 238. ASSESSMENT: 1. Acute hypoxemic respiratory failure secondary to diffuse interstitial lung disease. 2 Acute respiratory distress syndrome etiology is unclear. Patient has been evaluated by pulmonary medicine and there is a thought process that this could potentially be aspiration pneumonia versus desquamative inflammatory process with interstitial pneumonitis. Will continue with the current steroids and antibiotics. 2. Bilateral multifocal pneumonia. We will continue with the IV antibiotics. 3. Chronic pain syndrome. 4. Bipolar disorder. 5. Nicotine dependence. So today, we are going to continue with the plan as outlined by pulmonary medicine. Patient seems to be doing a whole lot better. She has been advised extensively on tobacco cessation. ANCA's have been ordered and we are pending the results and I have also changed her gabapentin to Lyrica for better neuropathic pain control. cc: Tee Del Rosario MD [facility]
--- NOTE | 2016-12-29 18:49 | ECHO REPORT ---
ORDER DATE: 12/29/2016 INTERPRETING PHYSICIAN: Dr. Blancas REQUESTING PHYSICIAN: CLINICAL INDICATIONS: A 36-year-old female with CHF, syncope. M-MODE MEASUREMENTS: Right ventricle: 3.2 cm. Left ventricle end diastole: 4.5 cm. Left ventricle end systole: 3.0 cm. Posterior wall: 1.0 cm. Interventricular septum: 1.0 cm. Left atrium: 3.6 cm. Aortic root: 3.1 cm. SUMMARY OF 2-DIMENSIONAL IMAGING: The left ventricular function is normal. Ejection fraction 65%. No wall motion abnormality is noted. The right ventricle is at the upper limits of normal. The atria appear to be normal. The aortic valve looks normal. Color flow mapping unremarkable. The mitral valve looks normal. Color flow mapping unremarkable. Pulse wave Doppler of mitral inflow is normal. Tissue Doppler of septal and lateral mitral annulus averages 9 cm per second. Pulmonary venous flow is normal. There is no diastolic dysfunction. The tricuspid valve looks normal. Color flow mapping unremarkable. The inferior vena cava is not dilated. The pulmonic valve looks normal. Color flow mapping unremarkable. There is no pericardial effusion, masses or thrombus. IMPRESSION: In summary, this echocardiographic study appears to be grossly within normal range. Clinical correlation recommended. cc: MD Abisai Ocampo MD
[2016-12-29] MEDS: DESYREL PO SCH (20:27)
[2016-12-29] MEDS: ZANAFLEX PO SCH (20:28)
[2016-12-29] MEDS: SEROQUEL PO SCH (20:29)
[2016-12-29] MEDS: LYRICA PO SCH (20:29)
[2016-12-29] MEDS ORDERED: XANAX PO ONE (23:49)
[2016-12-30] MEDS: LOVENOX SUBQ SCH (01:15)
[2016-12-30] MEDS: DUONEB (A & A) INH SCH ×6 (03:40→23:01)
[2016-12-30] MEDS: ZOFRAN IV PRN ×5 (04:32→23:10)
[2016-12-30] MEDS: MORPHINE IV PRN ×7 (04:32→22:15)
[2016-12-30 05:34] LABS: ALLEN TEST YES; BE 7.1 mmoll (-3.0-3.0); BLOOD TYPE ARTERIAL; DRAW SITE R RADIAL; METHB 0.9 % (0.0-1.5); O2(CT) 14.9 mL/dL (15.0-23.0); PCO2(98.6) 46 mmHg (35-45); PO2(98.6) 84 mmHg (60-100); SAMPLE BLOOD; SAO2 97.8 % (95.0-100.0); pH(98.6) 7.45 (7.35-7.45)
[2016-12-30 05:35] LABS: MODALITY CANNULA
[2016-12-30] MEDS: HUMALOG SUBQ SCH ×4 (06:15→21:06)
[2016-12-30 07:08] LABS: AGAP 12; BUN 10 mg/dL (8-22); CALCIUM 8.6 mg/dL (8.8-10.2); CHLORIDE 96 mmol/L (98-107); COSMO 287; POTASSIUM 4.2 mmol/L (3.5-5.1); SODIUM 139 mmol/L (136-145); TCO2 31 mmol/L (25-35)
[2016-12-30] MEDS: VANCOMYCIN 1,500 MG in NS 250 ML IV SCH (07:33)
[2016-12-30] MEDS: DULERA 200 MCG/5 MCG INHALER INH SCH ×2 (08:00→19:40)
--- NOTE | 2016-12-30 08:24 | PROGRESS NOTE ---
DATE: 12/30/2016 PRESENT ILLNESS: The patient has a bilateral pneumonia. MEDICATIONS: Patient has been on vancomycin, Zosyn, and Levaquin now for 5 days. PHYSICAL EXAMINATION: Vital Signs: Temperature is 97.8 degrees, pulse 86, respirations 18, blood pressure 138/99. General: This is an obese, somewhat ill-appearing, young female. She seems to be breathing much better than she did last week. Lungs: Clear to auscultation. Cardiovascular: Regular heart rate. Abdomen: Soft and nontender. Neurologic: Patient is alert. She can move extremities. LAB AND X-RAY: There is no new x-ray. CBC shows a white count of 10,610, hemoglobin 10.2, and platelet count 546,000. Blood gases show a pH of 7.45, PO2 of 84, pCO2 of 46. Creatinine is 1. GFR is greater than 60. IgG and IgA are within normal limits. ASSESSMENT AND PLAN: Patient has pneumonia. My plan is to continue her antibiotics as an outpatient and follow her up in the office. The patient's comorbidities include asthma, diabetes mellitus, and seizures. cc: Giuseppe Delarosa MD
[2016-12-30] MEDS: LASIX IV SCH (09:12)
[2016-12-30] MEDS: LEVAQUIN PO SCH (09:13)
[2016-12-30] MEDS: SODIUM CHLORIDE 0.9% INJ SCH ×3 (09:13→20:56)
[2016-12-30] MEDS: NEXIUM IV SCH ×2 (09:13→20:55)
[2016-12-30] MEDS: COLACE PO SCH ×2 (09:14→20:56)
[2016-12-30] MEDS: MIRALAX PO SCH (09:14)
[2016-12-30] MEDS: HUMULIN 70/30 SUBQ SCH ×2 (09:14→18:45)
[2016-12-30] MEDS: SOLU-MEDROL IV SCH ×2 (09:15→20:56)
[2016-12-30] MEDS: NICODERM PATCH TD SCH (09:16)
[2016-12-30] MEDS: VALIUM PO SCH ×2 (09:24→20:58)
[2016-12-30] MEDS: NORCO-5 PO SCH ×2 (09:24→20:55)
[2016-12-30] MEDS: LYRICA PO SCH ×2 (09:24→20:55)
[2016-12-30] MEDS: MAXIPIME 2 GM/NS 2 GM/100 ML IVPB IV SCH ×3 (10:27→20:59)
--- NOTE | 2016-12-30 13:01 | Diag Imaging Result Doc PS360 ---
EXAM: CHEST-PORTABLE HISTORY: dyspnea TECHNIQUE: AP portable at 1250 upright COMMENT: Compared to 12/29/2016 there has been marked improvement in the pulmonary edema which was previously present. The left heart border is still somewhat obscured. The diaphragm is visible at this time however. IMPRESSION: Nearly resolved pulmonary edema. Electronically signed by Khang Mahmood 12/30/2016 12:59 PM
[2016-12-30] MEDS: ZANAFLEX PO SCH (20:55)
[2016-12-30] MEDS: SEROQUEL PO SCH (20:55)
[2016-12-30] MEDS: DESYREL PO SCH (22:15)
[2016-12-31] MEDS: DUONEB (A & A) INH SCH ×3 (03:57→11:11)
[2016-12-31] MEDS: HUMALOG SUBQ SCH ×2 (06:52→11:37)
[2016-12-31] MEDS: LOVENOX SUBQ SCH (06:53)
[2016-12-31] MEDS: MORPHINE IV PRN ×3 (06:59→13:03)
[2016-12-31] MEDS: ZOFRAN IV PRN ×2 (06:59→13:03)
[2016-12-31 07:28] LABS: AGAP 12; BUN 10 mg/dL (8-22); CALCIUM 8.3 mg/dL (8.8-10.2); CHLORIDE 96 mmol/L (98-107); COSMO 287; POTASSIUM 4.4 mmol/L (3.5-5.1); SODIUM 138 mmol/L (136-145); TCO2 30 mmol/L (25-35)
[2016-12-31] MEDS: VALIUM PO SCH ×2 (07:52→11:40)
[2016-12-31] MEDS: NORCO-5 PO SCH ×2 (07:55→11:38)
[2016-12-31] MEDS: LYRICA PO SCH ×2 (07:56→08:22)
[2016-12-31] MEDS: COLACE PO SCH ×2 (07:57→08:21)
[2016-12-31] MEDS: LEVAQUIN PO SCH ×2 (07:57→08:22)
[2016-12-31] MEDS: SODIUM CHLORIDE 0.9% INJ SCH ×2 (07:58→11:39)
[2016-12-31] MEDS: VANCOMYCIN 1,500 MG in NS 250 ML IV SCH (07:58)
[2016-12-31] MEDS: MIRALAX PO SCH ×2 (07:58→11:38)
[2016-12-31] MEDS: NEXIUM IV SCH ×2 (07:58→11:39)
[2016-12-31] MEDS: SOLU-MEDROL IV SCH (07:59)
[2016-12-31] MEDS: LASIX IV SCH (08:03)
[2016-12-31] MEDS: NICODERM PATCH TD SCH (08:10)
[2016-12-31] MEDS: HUMULIN 70/30 SUBQ SCH (08:17)
[2016-12-31] MEDS: DULERA 200 MCG/5 MCG INHALER INH SCH (08:26)
[2016-12-31 10:12] LABS: HIV ANTIBODY SCREEN SEE COMMENTS
[2016-12-31] MEDS: MAXIPIME 2 GM/NS 2 GM/100 ML IVPB IV SCH (11:38)
[2016-12-31 11:41] VITALS: BP 130/77
--- NOTE | 2016-12-31 12:39 | PROGRESS NOTE ---
DATE: 12/31/2016 PRESENT ILLNESS: The patient has a bilateral pneumonia. MEDICATIONS: The patient has been receiving now for 6 days vancomycin, Zosyn, and Levaquin. PHYSICAL EXAMINATION: Vital Signs: Temperature is 98.6 degrees, pulse 115, respirations 20, blood pressure 117/67. General: This is a somewhat ill-appearing young female who is currently in no acute distress. She looks much better than she has for the past few days. She is not complaining of cough or being short of breath. Lungs: Clear to auscultation. Cardiovascular: Regular heart rate. Abdomen: Soft and nontender. LABORATORY AND X-RAY: The chest x-ray shows almost complete clearing. The patient's creatinine is 0.9. GFR is greater than 60. There is no CBC for today, but on the last one the patient had her white count had normalized at 10,610. ASSESSMENT AND PLAN: I think the patient's pneumonia is clearing quite well. My suggestion would be that we send her home only on p.o. Levaquin. I have already signed a prescription for that and it is in the patient's chart, and I do not think she will require IV antibiotics. Also, her PICC can be discontinued. COMORBIDITIES: She has asthma, diabetes mellitus, and seizures. cc: Giuseppe Delarosa MD
[2016-12-31] MEDS ORDERED: ATIVAN PO ONE (13:50)
[2017-01-01] MEDS ORDERED: PREDNISONE PO SCH (09:00)
--- NOTE | 2017-01-01 13:02 | DISCHARGE SUMMARY ---
ADMISSION DATE: 12/21/2016 DISCHARGE DATE: 12/31/2016 DISPOSITION: Home with home health. FOLLOWUP: 1. Dr. Paez. 2. Dr. Delarosa. 3. Dr. Upton. CONSULTATIONS DURING THIS ADMISSION: 1. Infectious Disease was consulted. Patient was seen by Dr. Delarosa. 2. Pulmonary Medicine was consulted. Patient was seen by Dr. Upton. INVASIVE PROCEDURES DONE DURING THIS ADMISSION: None. IMAGING STUDIES OF SIGNIFICANCE: 1. A CT scan of the head and cervical spine was done, which showed no acute disease. 2. A CT scan of the chest was done, which shows diffuse airspace infiltrate and interstitial thickening bilaterally, mild mediastinal lymphadenopathy, and diffuse hepatic steatosis. 3. Echocardiogram was done, which shows ejection fraction of 65% and echocardiographic study appears to be grossly within normal range. ADMISSION DIAGNOSES: 1. Hospital-acquired pneumonia with bilateral infiltrates. 2. Leukocytosis. 3. Hypotension. 4. Acute kidney injury. 5. Chronic pain syndrome. DIAGNOSES AT THE TIME OF DISCHARGE: 1. Acute hypoxemic respiratory failure secondary to diffuse interstitial lung disease. 2. Adult respiratory distress syndrome picture. Etiology was unclear. Suspicion of possible aspiration versus desquamative inflammatory process with interstitial pneumonitis. 3. Bilateral multifocal pneumonia. 4. Chronic pain syndrome. 5. Nicotine dependence. 6. Bipolar disorder. DISCHARGE MEDICATIONS: 1. Spironolactone 50 mg daily. 2. Quetiapine 100 mg daily. 3. Trazodone 50 mg at bedtime. 4. Metformin 500 p.o. daily. 5. Levofloxacin 500 p.o. daily. 6. Lyrica 75 mg b.i.d. 7. Prednisone 20 mg daily. Gabapentin has been discontinued. PRESENTING COMPLAINT: Weakness, dyspnea on exertion, and syncopal episode. HISTORY OF PRESENTING ILLNESS: Ms. Martin is a 36-year-old female who was recently admitted to [facility], discharged on 12/17/2016. According to the patient, upon discharge she started feeling some shortness of breath, so she decided to come to the emergency department over here. On the day of admission, she was worked up and found to have severe leukocytosis with a chest x-ray showing diffuse bilateral infiltrates. Patient was admitted for pneumonia. HOSPITAL COURSE: Patient did pretty well during the hospital stay, was initially started on BiPAP for high oxygen demand. Oxygen necessities gradually got better with antibiotics and adequate pulmonary toilette. Infectious Disease was consulted. Antibiotic was titrated by Dr. Delarosa until today, date of discharge, he chose to put the patient on p.o. levofloxacin since subsequent chest x-ray shows remarkable improvement. Pulmonary Medicine was also consulted and there was a concern that patient might have smoked a lot after she got discharged from [place] and that could have induced a desquamative inflammatory response causing an interstitial pneumonitis as the cause of her ARDS picture. Steroids were started on top of the antibiotics. HIV serology was sent, which came back negative. ANCA serologies where also sent as well as MACARIO, which were also negative. Patient's immunoglobulin levels were also normal. Gradually, the patient's oxygen demands got lower and lower, and was needing only about 3L nasal cannular. She is going to be discharged in a stable condition to follow up with Dr. Delarosa and also Dr. Upton. During the hospital stay, patient also had a lot of issues with pain medications, which we understood that she normally takes a lot of pain medications at home because she [facility]. However, we thought some of that could also be contributing to her altered mentation initially as well as low blood pressures. Patient was advised extensively on prescription drug use as well as other addiction cessation. At the time of discharge, there are no pending labs. The patient will be discharged in a stable condition. Vitals were blood pressure 130/77, pulse 94, respirations 20, and temperature 98.5 degrees. TIME SPENT FOR DISCHARGE: Thirty-eight minutes. cc: Tee Del Rosario MD
== END 2016-12-31 15:40 | disposition home health service (06) ==
LOC: ED 16:52 → 4N 23:00 → SUATTDRO 23:00 → 3S 12-24 10:25 → 4N 12-29 23:46
PROVIDERS: ATTEND Internal Medicine